=== PATIENT | male | born 1955 | race Caucasian/White ===

== ENCOUNTER 2016-09-15 01:06 | Emergency (ER) | payer OTHER ==
[2016-09-15] MEDS ORDERED: IPRATROPIUM/ALBUTEROL 3 ML NEB INH STA (02:41)
[2016-09-15] MEDS ORDERED: IPRATROPIUM/ALBUTEROL 3 ML NEB INH ONE (02:48)
[2016-09-15] MEDS ORDERED: predniSONE 20 MG TABLET PO STA (04:06)
[2016-09-15] MEDS ORDERED: AZITHROMYCIN 250 MG TABLET PO STA (04:07)
[2016-09-15] MEDS ORDERED: AZITHROMYCIN 250 MG TABLET PO ONE ×2 (04:10→04:15)
[2016-09-15] MEDS ORDERED: predniSONE 20 MG TABLET ONE (04:12)
== END 2016-09-15 04:19 | disposition home or self-care (01) ==
DX: J44.9 Chronic obstructive pulmonary disease, unspecified (principal); F17.200 Nicotine dependence, unspecified, uncomplicated
CPT/HCPCS: 36415; 71020; 80048; 83880; 85025; 87275; 87276; 94640; 99283; 99284; A9270; J7512; J7620

== ENCOUNTER 2017-12-23 14:05 | Emergency (ER) | payer OTHER ==
--- NOTE | 2017-12-23 14:51 | ED Physician Documentation ---
PD HPI CHEST PAIN - Stated complaint Stated Complaint: CHEST PX - Chief complaint Chief Complaint: Cardiac - History obtained from History obtained from: Patient - History of Present Illness Timing - onset: Yesterday Timing - onset during: Light activity Timing - details: Gradual onset, Still present (has cough and congestion and started having pain left chest with cough/breathing last night, improved into today but still hurting.) Quality: Sharp, Stabbing, Pain Location: Left chest Radiation: Back Worsened by: Inspiration, Movement. No: Exertion Associated symptoms: Shortness of air, Cough. No: Diaphoresis, Nausea, Vomiting , Feeling faint / dizzy, Palpitations Similar symptoms before: Diagnosis (COPD and pneumonia) Recently seen: Not recently seen Review of Systems Ten Systems: 10 systems reviewed and negative Constitutional: reports: Chills, Myalgias. denies: Fever Nose: reports: Congestion. denies: Rhinorrhea / runny nose Throat: denies: Sore throat Cardiac: reports: Chest pain / pressure. denies: Palpitations, Pedal edema, Calf pain Respiratory: reports: Dyspnea, Cough, Wheezing GI: denies: Nausea, Vomiting, Diarrhea Skin: denies: Rash PD PAST MEDICAL HISTORY - Past Medical History Respiratory: COPD, Emphysema Psych: Bipolar disorder, Post traumatic stress disorder - Past Surgical History Past Surgical History: Yes - Present Medications Home Medications: Ambulatory Orders Medication Instructions Recorded Confirmed Albuterol [Ventolin Hfa] 2 puffs INH Q4H PRN 11/22/13 09/15/16 Cetirizine HCl 1 mg PO DAILY 11/22/13 09/15/16 Valproic Acid [Stavzor] 125 mg PO DAILY 11/22/13 09/15/16 Ipratropium/Albuterol Sulfate 4 gm IH .FREQ 09/15/16 09/15/16 [Combivent Respimat Inhal [place]] predniSONE [Prednisone] 40 mg PO DAILY 3 Days tablet 09/15/16 Albuterol Sulf [Ventolin Hfa 1 - 2 puffs INH Q4HR PRN #1 inhaler 12/23/17 Inhaler] Benzonatate [Tessalon] 100 mg PO TID PRN #25 capsule 12/23/17 Dexamethasone [Decadron] 4 mg PO DAILY #5 tablet 12/23/17 Doxycycline Monohydrate 100 mg PO BID #14 tablet 12/23/17 HYDROcod/ACETAM 5/325 [[place] 5/325] 1 tab PO Q6H PRN #15 tablet 12/23/17 - Allergies Allergies/Adverse Reactions: Allergies Allergy/AdvReac Type Severity Reaction Status Date / Time No Known Drug Allergies Allergy Verified 09/15/16 01:11 - Social History Does the pt smoke?: Yes Smoking Status: Current every day smoker Does the pt drink ETOH?: No Does the pt have substance abuse?: No - Immunizations Immunizations are current?: Yes - POLST Patient has POLST: No PD ED PE NORMAL - Vitals Vital signs reviewed: Yes - General General: Alert and oriented X 3, No acute distress, Well developed/nourished - HEENT HEENT: Ears normal, Pharynx benign - Neck Neck: Supple, no meningeal sign, No adenopathy - Cardiac Cardiac: RRR, No murmur - Respiratory Respiratory: Other (diffuse exp wheezing. no fine crackles. ). No: Clear bilaterally - Abdomen Abdomen: Soft, Non tender - Derm Derm: Normal color, Warm and dry - Extremities Extremities: No deformity, No tenderness to palpate, No edema, No calf tenderness / cord Results - Vitals Vitals: Vital Signs - 24 hr 12/23/17 12/23/17 12/23/17 14:10 14:30 16:22 Temperature 36.8 C Heart Rate 98 83 Respiratory 18 16 Rate Blood Pressure 113/68 Blood Pressure 123/68 [Left] Blood Pressure 133/62 H [Right] O2 Saturation 95 12/23/17 12/23/17 12/23/17 16:32 17:14 17:35 Temperature Heart Rate 88 74 82 Respiratory 23 18 19 Rate Blood Pressure 137/62 H 114/57 L 120/66 Blood Pressure [Left] Blood Pressure [Right] O2 Saturation 100 82 L 95 12/23/17 18:05 Temperature Heart Rate 94 Respiratory 22 Rate Blood Pressure 122/60 Blood Pressure [Left] Blood Pressure [Right] O2 Saturation 96 Oxygen O2 Source Room air Oxygen Flow Rate 2 - EKG (time done) 14:11 Rate: Rate (enter#) (87) Rhythm: NSR [place]: Normal Intervals: Normal [place] QRS: Normal Ischemia: Normal ST segments. No: ST elevation c/w ischemia, ST depression Computer interpretation: Disagree with computer - Rads (name of study) chest Radiology: Prelim report reviewed, EMP read contemporaneously (hyperinflated without infiltrate) PD MEDICAL DECISION MAKING - ED course Complexity details: reviewed results (had brief sats below 87% but not consistent. To check with RT about qulification for home oxygen, but not likely. ), re-evaluated patient (improved with duoneb/neb. has COPD with exac and cough. Will treat with steroids and also presumptive abx. ), considered differential, d/w patient Departure - Departure Disposition: 01 Home, Self Care Clinical Impression: Bronchitis, Acute exacerbation of chronic obstructive pulmonary disease (COPD) , Pleuritic chest pain Condition: Stable Record reviewed to determine appropriate education?: Yes Instructions: COPD Dc, ED Chest Pain Pleurisy Prescriptions: Albuterol Sulf [Ventolin Hfa Inhaler] 1 - 2 puffs INH Q4HR PRN #1 inhaler PRN Reason: Shortness Of Air/Wheezing Benzonatate [Tessalon] 100 mg PO TID PRN #25 capsule PRN Reason: Cough Dexamethasone [Decadron] 4 mg PO DAILY #5 tablet Doxycycline Monohydrate 100 mg PO BID #14 tablet HYDROcod/ACETAM 5/325 [[place] 5/325] 1 tab PO Q6H PRN #15 tablet PRN Reason: Pain Comments: Drink lots of fluids. Use your albuterol inhaler 2-4 puffs 4 times a day and extra doses as needed for wheezing and cough. Decadron steroid daily for 5 more days. Doxycycline twice daily antibiotic for a week for concern of possible infection associated with the flareup of your COPD and cough. Use Tessalon if needed for cough. Tylenol or hydrocodone if needed for pains. Recheck if not improving over the next few days and return if worsening. Discharge Date/Time: 12/23/17 18:05
[2017-12-23] MEDS ORDERED: DEXAMETHASONE 10 MG/ML VIAL IVP STA (16:07)
[2017-12-23] MEDS ORDERED: MORPHINE 10 MG/ML VIAL IVP STA (16:07)
[2017-12-23] MEDS ORDERED: IPRATROPIUM/ALBUTEROL 3 ML NEB INH STA (16:07)
[2017-12-23] MEDS ORDERED: DOXYCYCLINE 100 MG TABLET PO STA (16:07)
[2017-12-23] MEDS ORDERED: KETOROLAC 60 MG/2 ML VIAL IVP STA (16:08)
--- NOTE | 2017-12-23 16:25 | XRAY Report ---
EXAM: CHEST RADIOGRAPHY EXAM DATE: 12/23/2017 03:43 PM. CLINICAL HISTORY: Chest pain COMPARISON: 09/15/2016. TECHNIQUE: 2 views. FINDINGS: Lungs/Pleura: No focal opacities evident. No pleural effusion. No pneumothorax. Normal volumes. Mediastinum: Heart and mediastinal contours are unremarkable. Other: None. IMPRESSION: No acute intrathoracic plain film abnormality. [facility] Referring Provider Line: [phone] SITE ID: [id number]
[2017-12-23 18:19] VITALS: BP 122/60
== END 2017-12-23 18:05 | disposition home or self-care (01) ==
LOC: ED 14:05
DX: J43.9 Emphysema, unspecified (principal); F17.200 Nicotine dependence, unspecified, uncomplicated
CPT/HCPCS: 71046; 93005; 94640; 96374; 96375; 99284; A9270; 80053; 83690; 84484; 85025; 96360

== ENCOUNTER 2018-01-15 17:21 | Emergency (ER) | payer OTHER ==
[2018-01-15 17:29] VITALS: BP 120/76
[2018-01-15] MEDS ORDERED: SULFAMETH/TRIMETH DS 800/160 MG TABLET PO STA (17:41)
[2018-01-15] MEDS ORDERED: cephALEXin 250 MG CAPSULE PO STA (17:41)
--- NOTE | 2018-01-15 17:44 | ED Physician Documentation ---
History of Present Illness - Stated complaint Stated Complaint: ARM/HAND/SINUS INFECTION - Chief complaint Chief Complaint: General - History obtained from History obtained from: Patient - History of Present Illness Timing: How many days ago (several) Pain level max: 0 Pain level now: 0 Improved by: nothing Worsened by: nothing - Additonal information Additional information: Patient is a 62-year-old gentleman that presents to the emergency department complaining of redness and swelling to the right arm. This [place] He has been applying Neosporin, but the redness is starting to spread up his arm. No fevers. He also had a recent upper respiratory infection, the coughing has improved but is still having nasal congestion and blood when he blows his nose. No fevers. No vomiting. No chest pain. Tetanus is up-to-date. Review of Systems Constitutional: denies: Fever, Chills Nose: reports: Rhinorrhea / runny nose, Congestion Throat: denies: Sore throat Cardiac: denies: Chest pain / pressure Respiratory: denies: Cough GI: denies: Nausea, Vomiting, Diarrhea Skin: denies: Rash Musculoskeletal: denies: Neck pain, Back pain Neurologic: denies: Headache PD PAST MEDICAL HISTORY - Past Medical History Past Medical History: Yes Respiratory: COPD, Emphysema Psych: Bipolar disorder, Post traumatic stress disorder - Past Surgical History Past Surgical History: Yes - Present Medications Home Medications: Ambulatory Orders Medication Instructions Recorded Confirmed Albuterol [Ventolin Hfa] 2 puffs INH Q4H PRN 11/22/13 09/15/16 Cetirizine HCl 1 mg PO DAILY 11/22/13 09/15/16 Valproic Acid [Stavzor] 125 mg PO DAILY 11/22/13 09/15/16 Ipratropium/Albuterol Sulfate 4 gm IH .FREQ 09/15/16 09/15/16 [Combivent Respimat Inhal [place]] predniSONE [Prednisone] 40 mg PO DAILY 3 Days tablet 09/15/16 Albuterol Sulf [Ventolin Hfa 1 - 2 puffs INH Q4HR PRN #1 inhaler 12/23/17 Inhaler] Benzonatate [Tessalon] 100 mg PO TID PRN #25 capsule 12/23/17 Dexamethasone [Decadron] 4 mg PO DAILY #5 tablet 12/23/17 Doxycycline Monohydrate 100 mg PO BID #14 tablet 12/23/17 HYDROcod/ACETAM 5/325 [[place] 5/325] 1 tab PO Q6H PRN #15 tablet 12/23/17 Cephalexin [Keflex] 500 mg PO Q6H #28 capsule 01/15/18 Sulfamethox/Trimeth 800/160 1 each PO BID #14 tablet 01/15/18 [Bactrim Ds 800/160] - Allergies Allergies/Adverse Reactions: Allergies Allergy/AdvReac Type Severity Reaction Status Date / Time No Known Drug Allergies Allergy Verified 01/15/18 17:29 - Social History Does the pt smoke?: Yes Smoking Status: Current every day smoker Does the pt drink ETOH?: No Does the pt have substance abuse?: No - Immunizations Immunizations are current?: Yes - POLST Patient has POLST: No PD ED PE NORMAL - Vitals Vital signs reviewed: Yes - General General: Alert and oriented X 3 - HEENT HEENT: PERRL, Ears normal, Moist mucous membranes, Pharynx benign, Dentition benign - Neck Neck: Supple, no meningeal sign - Cardiac Cardiac: RRR, Strong equal pulses - Respiratory Respiratory: No respiratory distress, Clear bilaterally - Abdomen Abdomen: Soft, Non tender, Non distended - Derm Derm: Warm and dry - Extremities Extremities: Other (R forearm - 3x3cm erythematous area to the arm. no drainage. no fluctuance. NVI. mild streaking. ) - Neuro Neuro: Alert and oriented X 3 - Psych Psych: Normal mood, Normal affect Results - Vitals Vitals: Vital Signs - 24 hr 01/15/18 17:26 Temperature 36.7 C Heart Rate 110 H Respiratory 18 Rate Blood Pressure 120/76 O2 Saturation 96 Oxygen O2 Source Room air PD MEDICAL DECISION MAKING - ED course Complexity details: considered differential, d/w patient, d/w family ED course: Patient is a 62-year-old male with a right arm cellulitis. Will place on antibiotics for this. He is well-appearing, nontoxic. Afebrile. Tetanus is up -to-date. Also may have a sinus infection, Bactrim should cover this. Patient counseled regarding signs and symptoms for which I believe and urgent re- evaluation would be necessary. Patient with good understanding of and agreement to plan and is comfortable going home at this time This document was made in part using voice recognition software. While efforts are made to proofread this document, sound alike and grammatical errors may occur. No drainable abscess at this time - Sepsis Event Vital Signs: Vital Signs - 24 hr 01/15/18 17:26 Temperature 36.7 C Heart Rate 110 H Respiratory 18 Rate Blood Pressure 120/76 O2 Saturation 96 Oxygen O2 Source Room air Departure - Departure Disposition: Home, Self Care Clinical Impression: Cellulitis Qualifiers: Site of cellulitis: extremity Site of cellulitis of extremity: upper extremity Laterality: right Qualified Code(s): L03.113 - Cellulitis of right upper limb Condition: Good Instructions: ED Infec Skin Cellulitis Follow-Up: your,doctor in 3 days for wound check [Other] Prescriptions: Cephalexin [Keflex] 500 mg PO Q6H #28 capsule Sulfamethox/Trimeth 800/160 [Bactrim Ds 800/160] 1 each PO BID #14 tablet Comments: Return if you worsen. This should improve over the next 24-48 hours. Take all antibiotics until gone.
== END 2018-01-15 17:55 | disposition home or self-care (01) ==
LOC: ED 17:21
DX: L03.113 Cellulitis of right upper limb (principal); J44.9 Chronic obstructive pulmonary disease, unspecified; F17.200 Nicotine dependence, unspecified, uncomplicated; F31.9 Bipolar disorder, unspecified; R09.81 Nasal congestion
CPT/HCPCS: 99283; A9270

== ENCOUNTER 2019-03-12 00:39 | Outpatient (CLI) | payer OTHER | END 2019-03-12 00:40 | disposition critical access hospital (66) | LOC: EMS 00:39 | PROVIDERS: ATTEND Surgery | DX: R06.02 Shortness of breath (principal); R05 Cough | CPT/HCPCS: A0425; A0427 ==

== ENCOUNTER 2019-03-12 01:16 | Emergency (ER) | payer OTHER ==
--- NOTE | 2019-03-12 01:25 | ED Physician Documentation ---
PD HPI DYSPNEA - Stated complaint Stated Complaint: SOA - History obtained from History obtained from: Patient, EMS - History of Present Illness Timing - onset: How many hours ago Timing - onset during: Rest Timing - duration: Hours (3-4) Timing - details: Gradual onset Inciting event(s): Out of meds. No: Allergic rxn/anaphylaxis Improved by: O2, Inhaler/neb Worsened by: Laying flat Associated symptoms: Cough, Wheezing. No: Fever, Hemoptysis, Chest pain / discomfort, Palpitations, Diaphoresis, Bilateral edema, Unilateral edema Similar symptoms before: Diagnosis (COPD) Recently seen: Not recently seen - Additional information Additional information: This is a 63-year-old man with a history of COPD called the ambulance tonight because he was having difficulty breathing and has been out of his rescue inhaler for about 2 months. He said tonight he thought he was going to he was having so much trouble breathing the ambulance gave him albuterol and Atrovent and he feels "100% better". Tonight he started coughing about 4 hours before he called the ambulance and he just could not stop. He is bringing up some clear phlegm. He also developed a constant clear rhinorrhea. Denies any fevers. Reports a history of COPD and says that he is taken prednisone that was prescribed for other people in the past but is never had a prescription for himself. He denies chest pain, nausea or vomiting. He has had no peripheral edema no history of DVT. Denies any urinary symptoms. No fever. Patient lives at home with his family and receives his medical care at the [facility] in [place]. Review of Systems Constitutional: denies: Fever Eyes: denies: Decreased vision Ears: denies: Ear pain Nose: reports: Rhinorrhea / runny nose Throat: denies: Sore throat Cardiac: denies: Chest pain / pressure, Pedal edema Respiratory: reports: Dyspnea, Cough, Wheezing GI: denies: Nausea, Vomiting : denies: Dysuria, Frequency Skin: denies: Rash Musculoskeletal: denies: Extremity swelling Neurologic: denies: Numbness, LOC Endocrine: reports: Other (He is not diabetic) PD PAST MEDICAL HISTORY - Past Medical History Respiratory: COPD, Emphysema Psych: Bipolar disorder, Post traumatic stress disorder - Past Surgical History Past Surgical History: Yes - Present Medications Home Medications: Ambulatory Orders Medication Instructions Recorded Confirmed Albuterol [Ventolin Hfa] 2 puffs INH Q4H PRN 11/22/13 09/15/16 Cetirizine HCl 1 mg PO DAILY 11/22/13 09/15/16 Valproic Acid [Stavzor] 125 mg PO DAILY 11/22/13 09/15/16 Ipratropium/Albuterol Sulfate 4 gm IH .FREQ 09/15/16 09/15/16 [Combivent Respimat Inhal [place]] predniSONE [Prednisone] 40 mg PO DAILY 3 Days tablet 09/15/16 Albuterol Sulf [Ventolin Hfa 1 - 2 puffs INH Q4HR PRN #1 inhaler 12/23/17 Inhaler] Benzonatate [Tessalon] 100 mg PO TID PRN #25 capsule 12/23/17 Doxycycline Monohydrate 100 mg PO BID #14 tablet 12/23/17 HYDROcod/ACETAM 5/325 [[place] 5/325] 1 tab PO Q6H PRN #15 tablet 12/23/17 dexAMETHasone [Decadron] 4 mg PO DAILY #5 tablet 12/23/17 Cephalexin [Keflex] 500 mg PO Q6H #28 capsule 01/15/18 Sulfamethox/Trimeth 800/160 1 each PO BID #14 tablet 01/15/18 [Bactrim Ds 800/160] Albuterol 2.5 mg INH Q4H PRN #30 neb 03/12/19 predniSONE [Prednisone] 60 mg PO DAILY #15 tablet 03/12/19 - Allergies Allergies/Adverse Reactions: Allergies Allergy/AdvReac Type Severity Reaction Status Date / Time No Known Drug Allergies Allergy Verified 03/12/19 01:25 - Social History Does the pt smoke?: Yes Smoking Status: Current every day smoker Does the pt drink ETOH?: No Does the pt have substance abuse?: No - Immunizations Immunizations are current?: Yes - POLST Patient has POLST: No PD ED PE NORMAL - Vitals Vital signs reviewed: Yes - General General: Alert and oriented X 3, No acute distress, Well developed/nourished, Other (Thin 63 yr old man appears still slightly dyspneic) - HEENT HEENT: Atraumatic, PERRL, EOMI, Moist mucous membranes, Pharynx benign - Neck Neck: Supple, no meningeal sign, Thyroid normal - Cardiac Cardiac: RRR, No murmur - Respiratory Respiratory: No respiratory distress, Other (Lungs are tight with just end insp iratory wheezing heard at the left lung norris.) - Abdomen Abdomen: Normal bowel sounds, Soft - Derm Derm: Normal color, Warm and dry, No rash - Extremities Extremities: No edema - Neuro Neuro: Alert and oriented X 3, patrol man 2-12 intact, No motor deficit, Normal speech - Psych Psych: Normal mood, Normal affect Results - Vitals Vitals: Vital Signs - 24 hr 03/12/19 03/12/19 03/12/19 01:19 01:36 03:00 Temperature 36.4 C L Heart Rate 74 73 76 Respiratory 28 H 9 L 21 Rate Blood Pressure 145/70 H 138/66 H O2 Saturation 98 94 03/12/19 03:30 Temperature Heart Rate 79 Respiratory 17 Rate Blood Pressure 138/73 H O2 Saturation 94 Oxygen O2 Source Room air Oxygen Flow Rate 2 - Labs Labs: Laboratory Tests 03/12/19 03/12/19 01:33 01:33 WBC 10.3 RBC 4.38 L Hgb 13.7 L Hct 42.3 MCV 96.6 H MCH 31.3 H MCHC 32.4 RDW 14.5 Plt Count 258 MPV 8.9 Neut # (Auto) 5.7 Lymph # (Auto) 3.2 [place] # (Auto) 1.1 H Eos # (Auto) 0.2 Baso # (Auto) 0.1 Absolute Nucleated RBC 0.00 Nucleated RBC % 0.0 Sodium 140 Potassium 4.1 Chloride 103 Carbon Dioxide 28 Anion Gap 9.0 BUN 19 Creatinine 0.9 Estimated GFR (MDRD) 85 L Glucose 102 H Calcium 8.9 Magnesium 2.1 PD MEDICAL DECISION MAKING - ED course Complexity details: reviewed results, d/w patient ED course: 0218: Chest x-ray shows hyperinflation but no infiltrate. CBC BMP and magnesium are normal. The patient received an albuterol here and said that he was feeling better he was actually sleeping when I went in the room his sats were 96% on 2 L. Turned his oxygen off and I have ordered Solu-Medrol. His lung sounds are still diminished but I do not hear the wheezing any longer. 0346: Patient has sleeping and O2 saturations are 9495% on room air.When aroused he states that he feels good and ready for discharge. We will place him on prednisone for 5 days and make sure he has albuterol inhaler Departure - Departure Disposition: 01 Home, Self Care Clinical Impression: Moderate COPD (chronic obstructive pulmonary disease) Condition: Good Instructions: ED COPD Flare Follow-Up: doctor,your [Other] [facility] [Provider Group] Prescriptions: Albuterol 2.5 mg INH Q4H PRN #30 neb PRN Reason: Wheezing predniSONE [Prednisone] 60 mg PO DAILY #15 tablet Comments: Stop smoking! Take the prednisone 3 tablets daily for the next 5 days. Use the albuterol inhaler every 4 hours as needed. Follow-up with a primary care provider for further refills on her medications and reevaluation if your symptoms are not improving. Return to the emergency department if you have increasing shortness of breath, feel dizzy or pass out, develop chest pain or other problems arise.
[2019-03-12] MEDS ORDERED: ALBUTEROL NEB 2.5 MG/3 ML INH STA (01:26)
[2019-03-12 01:38] LABS: BASOPHILS # (AUTO) 0.1 10^3/uL (0.0-0.1); BASOPHILS % (AUTO) 0.6 %; EOSINOPHILS # (AUTO) 0.2 10^3/uL (0.0-0.7); EOSINOPHILS % (AUTO) 2.1 %; HGB - HEMOGLOBIN 13.7 g/dL (14.0-18.0); LYMPHOCYTES # (AUTO) 3.2 10^3/uL (1.5-3.5); LYMPHOCYTES % (AUTO) 30.8 %; MEAN CORPUSCULAR HEMOGLOBIN 31.3 pg (27.0-31.0); MEAN CORPUSCULAR HGB CONC 32.4 g/dL (32.0-36.0); MEAN CORPUSCULAR VOLUME 96.6 fL (80.0-94.0); MEAN PLATELET VOLUME 8.9 fL (7.4-11.4); MONOCYTES # (AUTO) 1.1 10^3/uL (0.0-1.0); MONOCYTES % (AUTO) 10.3 %; NEUTROPHILS # (AUTO) 5.7 10^3/uL (1.5-6.6); NEUTROPHILS % (AUTO) 55.7 %; PLT - PLATELET COUNT 258 10^3/uL (130-450); RED BLOOD COUNT 4.38 10^6/uL (4.70-6.10); RED CELL DISTRIBUTION WIDTH 14.5 % (12.0-15.0); WHITE BLOOD COUNT 10.3 x10^3/uL (4.8-10.8)
[2019-03-12 01:47] LABS: CALCIUM 8.9 mg/dL (8.5-10.3); CREATININE 0.9 mg/dL (0.6-1.2); MAGNESIUM 2.1 mg/dL (1.7-2.8)
--- NOTE | 2019-03-12 01:47 | XRAY Report ---
Reason: chest pain Procedure Date: 03/12/2019 Accession Number: [id number] / [id number] Procedure: XR - Chest 1 View X-Ray CPT Code: 44326 FULL RESULT: EXAM: CHEST RADIOGRAPHY EXAM DATE: 03/12/2019 01:25 AM. CLINICAL HISTORY: Chest pain. COMPARISON: CHEST 2 VIEW 12/23/2017 3:29 PM. TECHNIQUE: 1 view. FINDINGS: Lungs/Pleura: Stable hyperinflation. No focal infiltrate, effusion, or pneumothorax. Mediastinum: Within exam limitations, the cardiomediastinal contour is normal. Other: None. IMPRESSION: Stable hyperinflation. No evidence of acute cardiopulmonary disease. [facility]
[2019-03-12] MEDS ORDERED: methylPREDNISolone SUCCINATE 125 MG/2 ML VIAL IVP STA (02:16)
[2019-03-12 04:21] VITALS: BP 133/73
== END 2019-03-12 04:38 | disposition home or self-care (01) ==
LOC: EDUNIT# → ED 01:16
DX: J44.9 Chronic obstructive pulmonary disease, unspecified (principal); F17.200 Nicotine dependence, unspecified, uncomplicated
CPT/HCPCS: 36415; 71045; 80048; 83735; 85025; 94640; 96374; 99284

== ENCOUNTER 2019-04-02 23:12 | Emergency (ER) | payer OTHER ==
[2019-04-02 23:19] VITALS: BP 136/73
--- NOTE | 2019-04-02 23:45 | ED Physician Documentation ---
PD HPI MALE - Stated complaint Stated Complaint: MALE - Chief complaint Chief Complaint: Abd Pain - History obtained from History obtained from: Patient - History of Present Illness Timing - onset: How many days ago (2-3) Timing - duration: Days Timing - details: Gradual onset Associated symptoms: Dysuria, Urinary frequency Similar symptoms before: Has not had sx before Recently seen: Not recently seen Review of Systems Constitutional: denies: Fever, Chills, Sweats GI: denies: Abdominal Pain : reports: Dysuria, Frequency Musculoskeletal: denies: Back pain PD PAST MEDICAL HISTORY - Past Medical History Past Medical History: No Cardiovascular: None Respiratory: COPD, Emphysema Neuro: None Endocrine/Autoimmune: None GI: None : None HEENT: None Psych: Bipolar disorder, Post traumatic stress disorder Musculoskeletal: None Derm: None - Past Surgical History Past Surgical History: Yes - Present Medications Home Medications: Ambulatory Orders Medication Instructions Recorded Confirmed Albuterol [Ventolin Hfa] 2 puffs INH Q4H PRN 11/22/13 09/15/16 Cetirizine HCl 1 mg PO DAILY 11/22/13 09/15/16 Valproic Acid [Stavzor] 125 mg PO DAILY 11/22/13 09/15/16 Ipratropium/Albuterol Sulfate 4 gm IH .FREQ 09/15/16 09/15/16 [Combivent Respimat Inhal [place]] predniSONE [Prednisone] 40 mg PO DAILY 3 Days tablet 09/15/16 Albuterol Sulf [Ventolin Hfa 1 - 2 puffs INH Q4HR PRN #1 inhaler 12/23/17 Inhaler] Benzonatate [Tessalon] 100 mg PO TID PRN #25 capsule 12/23/17 Doxycycline Monohydrate 100 mg PO BID #14 tablet 12/23/17 HYDROcod/ACETAM 5/325 [[place] 5/325] 1 tab PO Q6H PRN #15 tablet 12/23/17 dexAMETHasone [Decadron] 4 mg PO DAILY #5 tablet 12/23/17 Cephalexin [Keflex] 500 mg PO Q6H #28 capsule 01/15/18 Sulfamethox/Trimeth 800/160 1 each PO BID #14 tablet 01/15/18 [Bactrim Ds 800/160] Albuterol 2.5 mg INH Q4H PRN #30 neb 03/12/19 predniSONE [Prednisone] 60 mg PO DAILY #15 tablet 03/12/19 Ciprofloxacin HCl [Cipro] 500 mg PO BID #13 tablet 04/03/19 Phenazopyridine HCl [Pyridium] 200 mg PO TID PRN #6 tablet 04/03/19 - Allergies Allergies/Adverse Reactions: Allergies Allergy/AdvReac Type Severity Reaction Status Date / Time No Known Drug Allergies Allergy Verified 04/02/19 23:20 - Social History Does the pt smoke?: Yes Smoking Status: Current every day smoker Does the pt drink ETOH?: Yes Does the pt have substance abuse?: No - Immunizations Immunizations are current?: Yes - POLST Patient has POLST: No PD ED PE NORMAL - Vitals Vital signs reviewed: Yes - General General: Alert and oriented X 3, No acute distress, Well developed/nourished - Abdomen Abdomen: Soft, Non tender - Back Back: No CVA TTP Results - Vitals Vitals: Vital Signs - 24 hr 04/02/19 23:17 Temperature 36.9 C Heart Rate 85 Respiratory 18 Rate Blood Pressure 136/73 H O2 Saturation 97 Oxygen O2 Source Room air - Labs Labs: Laboratory Tests 04/02/19 23:50 Urine Color YELLOW Urine Clarity CLEAR Urine pH 6.0 Ur Specific [place] 1.025 Urine Protein NEGATIVE Urine Glucose (UA) NEGATIVE Urine Ketones NEGATIVE Urine Occult Blood NEGATIVE Urine Nitrite NEGATIVE Urine Bilirubin NEGATIVE Urine Urobilinogen 0.2 (NORMAL) Ur Leukocyte Esterase SMALL H Urine RBC 0-5 Urine WBC 11-25 H Ur Squamous Epith Cells RARE Squamous Urine Bacteria Few Ur Microscopic Review INDICATED Urine Culture Comments INDICATED PD MEDICAL DECISION MAKING - ED course Complexity details: reviewed results, re-evaluated patient, considered differential, d/w patient Departure - Departure Disposition: 01 Home, Self Care Clinical Impression: Urinary tract infection Condition: Good Instructions: ED UTI Cystitis Male Prescriptions: Ciprofloxacin HCl [Cipro] 500 mg PO BID #13 tablet Phenazopyridine HCl [Pyridium] 200 mg PO TID PRN #6 tablet PRN Reason: dysuria Discharge Date/Time: 04/03/19 00:44
[2019-04-03] LABS: BILIRUBIN,URINE NEGATIVE (NEGATIVE); GLUCOSE, URINE (UA) NEGATIVE (NEGATIVE); KETONES,URINE (UA) NEGATIVE (NEGATIVE); LEUKOCYTE ESTERASE, URINE SMALL (NEGATIVE); NITRITE,URINE NEGATIVE (NEGATIVE); OCCULT BLOOD,URINE NEGATIVE (NEGATIVE); PROTEIN,URINE NEGATIVE (NEGATIVE); UROBILINOGEN,URINE 0.2 (NORMAL) E.U./dL (NORMAL)
[2019-04-03 00:09] LABS: CLARITY,URINE CLEAR (CLEAR)
[2019-04-03 00:22] LABS: BACTERIA,URINE Few /HPF (None Seen); RBC,URINE 0-5 /HPF (0-5); SQUAMOUS EPITHELIAL CELL,UR RARE Squamous (<= Few)
[2019-04-03] MEDS ORDERED: CIPROFLOXACIN 250 MG TABLET PO STA (00:28)
[2019-04-03] MEDS ORDERED: PHENAZOPYRIDINE 100 MG TABLET PO STA (00:31)
== END 2019-04-03 00:44 | disposition home or self-care (01) ==
LOC: ED 23:12
DX: N39.0 Urinary tract infection, site not specified (principal); F17.200 Nicotine dependence, unspecified, uncomplicated
CPT/HCPCS: 81001; 87086; 99283; A9270; 81003

== ENCOUNTER 2019-11-01 05:21 | Outpatient (CLI) | payer OTHER | END 2019-11-01 05:22 | disposition short-term general hospital (02) | LOC: EMS 05:21 | PROVIDERS: ATTEND Surgery | DX: R07.9 Chest pain, unspecified (principal) | CPT/HCPCS: A0425; A0429 ==

== ENCOUNTER 2022-09-02 03:07 | Outpatient (CLI) | payer OTHER | END 2022-09-02 03:08 | disposition critical access hospital (66) | LOC: EMS 03:07 | DX: R06.00 Dyspnea, unspecified (principal); R23.1 Pallor; R61 Generalized hyperhidrosis; R06.2 Wheezing | CPT/HCPCS: A0425; A0427 ==

== ENCOUNTER 2022-09-02 03:43 | Emergency (ER) | payer OTHER ==
--- NOTE | 2022-09-02 04:12 | ED Physician Documentation ---
PD HPI DYSPNEA - Stated complaint Stated Complaint: SOA - Chief complaint Chief Complaint: Resp - History obtained from History obtained from: Patient - History of Present Illness Timing - onset: How many days ago (3) Timing - details: Gradual onset Improved by: Rest Worsened by: Exertion, Coughing Associated symptoms: Cough, Wheezing. No: Fever, Chest pain / discomfort, Palpitations, Bilateral edema, Unilateral edema Similar symptoms before: Diagnosis (COPD) - Additional information Additional information: HPI from patient and EMS. BIBA for c/o dyspnea. Patient has COPD; EMS they arrived to find patient on 3 liters/min NC oxygen with pulse ox 86% , improved to 90-93% with duoneb followed by albuterol neb treatments. Also given 125mg IV solu-medrol by EMS. EMS says patient uses oxygen at home. On my HPI, patient denies using home oxygen; he says he used to have home oxygen but at some point his insurance stopped covering the cost and thus he no longer uses home oxygen. He says he has a nebulizer machine but ran out of neb treatments. He says he does have inhalers for his COPD exacerbations. He tells me he has had increasing dyspnea over his baseline for past 3 days as well as increasing cough which has become productive of discolored sputum over past 2-3 days. Patient was admitted to [facility] 01/01/22 for COPD exacerbation associated with fevers and pneumonia. Review of Systems Constitutional: denies: Fever, Chills, Sweats Cardiac: reports: Reviewed and negative Respiratory: reports: Dyspnea, Cough, Wheezing. denies: Hemoptysis GI: reports: Reviewed and negative Neurologic: denies: Generalized weakness, Focal weakness, Numbness PD PAST MEDICAL HISTORY - Past Medical History Cardiovascular: None Respiratory: COPD, Emphysema Neuro: None Endocrine/Autoimmune: None GI: None : None HEENT: None Psych: Bipolar disorder, Post traumatic stress disorder Musculoskeletal: None Derm: None - Past Surgical History Past Surgical History: Yes - Present Medications Home Medications: Ambulatory Orders Medication Instructions Recorded Confirmed Cetirizine HCl 1 mg PO DAILY 11/22/13 09/02/22 Valproic Acid [Stavzor] 125 mg PO DAILY 11/22/13 09/02/22 Ipratropium/Albuterol Sulfate 1 puffs IH QID 09/15/16 09/02/22 [Combivent Respimat 20-100 Mcg] Albuterol Sulf [Ventolin Hfa 1 - 2 puffs INH Q4HR PRN #1 inhaler 12/23/17 09/02/22 Inhaler] Albuterol 2.5 mg INH Q4H PRN #30 neb 03/12/19 09/02/22 Terazosin [Hytrin] 2 mg PO DAILY 01/02/22 09/02/22 predniSONE [Deltasone] 10 mg PO DAILY 8 Days #8 tablet 01/04/22 09/02/22 Albuterol 2.5 mg INH Q4H PRN #30 ml 09/02/22 Azithromycin [Zithromax] 250 mg PO DAILY #4 tablet 09/02/22 predniSONE [Deltasone] 40 mg PO DAILY 5 Days #10 tablet 09/02/22 - Allergies Allergies/Adverse Reactions: Allergies Allergy/AdvReac Type Severity Reaction Status Date / Time No Known Drug Allergies Allergy Verified 09/02/22 03:52 - Social History Does the pt smoke?: Yes Smoking Status: Former smoker Does the pt drink ETOH?: Yes Does the pt have substance abuse?: No - Immunizations Immunizations are current?: Yes - POLST Patient has POLST: No POLST Status: Full Code PD ED PE NORMAL - Vitals Vital signs reviewed: Yes - General General: Alert and oriented X 3, No acute distress, Well developed/nourished - Neck Neck: Supple, no meningeal sign - Cardiac Cardiac: RRR, No murmur - Respiratory Respiratory: No respiratory distress - Derm Derm: Normal color, Warm and dry - Extremities Extremities: No edema PD ED PE EXPANDED - Respiratory Respiratory: Wheezing (course bilateral wheezing in all lung norris), Decreased breath sounds Results - Vitals Vitals: Oxygen O2 Source Room air Oxygen Flow Rate 3 - EKG (time done) No standard instances Rate: Rate (enter#) (96) Rhythm: NSR, LAE, KE [place]: LAD Intervals: Normal [place] QRS: Normal Ischemia: Normal ST segments - Labs Labs: Laboratory Tests 09/02/22 09/02/22 09/02/22 03:40 03:48 03:48 WBC 12.6 H RBC 4.12 L Hgb 12.3 L Hct 38.4 L MCV 93.2 MCH 29.9 MCHC 32.0 RDW 15.5 H Plt Count 266 MPV 10.1 Neut # (Auto) 8.7 H Lymph # (Auto) 2.9 [place] # (Auto) 1.0 Eos # (Auto) 0.0 Baso # (Auto) 0.1 Absolute Nucleated RBC 0.00 Nucleated RBC % 0.0 Sodium 137 Potassium 4.0 Chloride 98 L Carbon Dioxide 28 Anion Gap 11.0 BUN 18 Creatinine 1.2 Estimated GFR (MDRD) 60 L Glucose 153 H Calcium 9.0 Total Bilirubin 0.6 AST 14 ALT 11 Alkaline Phosphatase 73 Troponin I High Sens B-Natriuretic Peptide Total Protein 7.0 Albumin 3.0 L Globulin 4.0 Albumin/Globulin Ratio 0.8 L Lipase 25 Nasal Adenovirus (PCR) NOT DETECTED Nasal B. parapertussis DNA (PCR) NOT DETECTED Nasal Coronavir 229E PCR NOT DETECTED Nasal Coronavir HKU1 PCR NOT DETECTED Nasal Coronavir NL63 PCR NOT DETECTED Nasal Coronavir OC43 PCR NOT DETECTED Nasal Enterovir/Rhinovir PCR DETECTED A Nasal Influenza B PCR NOT DETECTED Nasal Influenza A PCR NOT DETECTED Nasal Parainfluen 1 PCR NOT DETECTED Nasal Parainfluen 2 PCR NOT DETECTED Nasal Parainfluen 3 PCR NOT DETECTED Nasal Parainfluen 4 PCR NOT DETECTED Nasal RSV (PCR) NOT DETECTED Nasal B.pertussis DNA PCR NOT DETECTED Nasal C.pneumoniae (PCR) NOT DETECTED Pako Human Metapneumo PCR NOT DETECTED Nasal M.pneumoniae (PCR) NOT DETECTED Nasal SARS-CoV-2 (PCR) NOT DETECTED 09/02/22 09/02/22 03:48 03:48 WBC RBC Hgb Hct MCV MCH MCHC RDW Plt Count MPV Neut # (Auto) Lymph # (Auto) [place] # (Auto) Eos # (Auto) Baso # (Auto) Absolute Nucleated RBC Nucleated RBC % Sodium Potassium Chloride Carbon Dioxide Anion Gap BUN Creatinine Estimated GFR (MDRD) Glucose Calcium Total Bilirubin AST ALT Alkaline Phosphatase Troponin I High Sens 6.1 B-Natriuretic Peptide 61 Total Protein Albumin Globulin Albumin/Globulin Ratio Lipase Nasal Adenovirus (PCR) Nasal B. parapertussis DNA (PCR) Nasal Coronavir 229E PCR Nasal Coronavir HKU1 PCR Nasal Coronavir NL63 PCR Nasal Coronavir OC43 PCR Nasal Enterovir/Rhinovir PCR Nasal Influenza B PCR Nasal Influenza A PCR Nasal Parainfluen 1 PCR Nasal Parainfluen 2 PCR Nasal Parainfluen 3 PCR Nasal Parainfluen 4 PCR Nasal RSV (PCR) Nasal B.pertussis DNA PCR Nasal C.pneumoniae (PCR) Pako Human Metapneumo PCR Nasal M.pneumoniae (PCR) Nasal SARS-CoV-2 (PCR) - Rads (name of study) chest xray Radiology: Prelim report reviewed, EMP read indepedently, See rad report PD Medical Decision Making - ED course Complexity details: reviewed old records (reviewed discharge summary from 01/01/22 [facility] inpatient stay), reviewed results, re-evaluated patient, considered differential, d/w patient ED course: HPI from patient as well as EMS. I also spoke with patient's late in ED stay. Tests ordered and reviewed by me: CBC, ER abdominal panel, respiratory PCR panel, BNP, hs-cTn, EKG, CXR. Normal BNP and troponin. Mild leukocytosis. Respiratory PCR panel positive for entero/rhinovirus On arrival, patient has pulse ox 89% on 3 liters/min NC, and oxygen increased to as high as 10 L/min to get to maintain 90-92% pulse ox. He is given albuterol neb in ED. CXR shows changes c/w severe COPD; faint bilateral opacities, possibly atelectasis , scarring, or infiltrates. Due to severity of COPD and possible early pneumonia on CXR, he is given rocephin 1 gram IV as well as 500mg IV azithromycin. He had significant improvement during subsequent observation , and supplementary oxygen was titrated down to 2 l/min NC with pulse ox 95-97%. On reassessment, I again asked him about home oxygen, noting that the d/c summary from 01/01/22 indicates he was set up with home oxygen. He again says this was when he had oxygen for a few months before being told he would no longer be covered for home oxygen use (from coverage standpoint). He was trialed off of oxygen and pulse ox dropped to 85% , returning to 94-95% with resumption of 2 l/min NC oxygen. I then spoke to patient's by phone. She says patient does have a home oxygenator that can provide 2 liters/min oxygen, but that patient mostly does not use it even when he becomes short of breath. Subsequently, I had environmental health technologist walk patient up and down the ED hallway with 2 l/min NC oxygen and patient was able to ambulate without assistance or difficulty, did not become dyspneic (I witnessed the ambulation/testing), and pulse ox maintained 94-95% throughout. There is no longer an indication / need for admission to [facility] and thus at end of my shift he is pending d/c home. I provided rx for azithromycin as well as albuterol arnel brandon. Departure - Departure Disposition: Home, Self Care Clinical Impression: Acute exacerbation of chronic obstructive pulmonary disease (COPD) Condition: Good Instructions: ED COPD Flare Prescriptions: Albuterol 2.5 mg INH Q4H PRN #30 ml PRN Reason: Wheezing predniSONE [Deltasone] 40 mg PO DAILY 5 Days #10 tablet Azithromycin [Zithromax] 250 mg PO DAILY #4 tablet Comments: There were no concerning findings on the blood test performed tonight. There is some very mild hazy abnormalities on the chest x-ray that could represent pneumonia. For this, antibiotics (one-time dose of ceftriaxone intravenously followed by a dose of azithromycin IV). You are also given a steroid through the IV (Solu-Medrol). At the end of your ER stay just prior to discharge, you able to walk up and down the hallway with only 2 L of oxygen through the nasal cannula. You have indicated that you do have an oxygenator at home capable of delivering 2 L of oxygen, and thus it is very important that you use the oxygen. Prescriptions for a steroid (prednisone) and 4 more days of the azithromycin (antibiotic) are being provided to you. The steroid is to be taken once a day for the next 5 days. You have indicated to me that you have a nebulizer at home but have run out of the nebulized treatments, and thus I have also provided a prescription for albuterol in the form that can be used with the nebulizer. Please follow-up with your primary care provider within 1 week for reevaluation. Please return to the emergency department if worse in any way, or if you develop fever, shortness of breath that does not respond to the oxygen and nebulized treatments. Discharge Date/Time: 09/02/22 15:16
[2022-09-02 04:17] LABS: BASOPHILS # (AUTO) 0.1 10^3/uL (0.0-0.1); BASOPHILS % (AUTO) 0.5 %; EOSINOPHILS % (AUTO) 0.2 %; HCT - HEMATOCRIT 38.4 % (42.0-52.0); HGB - HEMOGLOBIN 12.3 g/dL (14.0-18.0); LYMPHOCYTES # (AUTO) 2.9 10^3/uL (1.5-3.5); LYMPHOCYTES % (AUTO) 22.6 %; MEAN CORPUSCULAR HEMOGLOBIN 29.9 pg (27.0-31.0); MEAN CORPUSCULAR VOLUME 93.2 fL (80.0-94.0); MEAN PLATELET VOLUME 10.1 fL (7.4-11.4); MONOCYTES % (AUTO) 7.7 %; NEUTROPHILS # (AUTO) 8.7 10^3/uL (1.5-6.6); NEUTROPHILS % (AUTO) 68.8 %; PLT - PLATELET COUNT 266 10^3/uL (130-450); RED BLOOD COUNT 4.12 10^6/uL (4.70-6.10); RED CELL DISTRIBUTION WIDTH 15.5 % (12.0-15.0); WHITE BLOOD COUNT 12.6 x10^3/uL (4.8-10.8)
[2022-09-02] MEDS ORDERED: ALBUTEROL NEB 2.5 MG/3 ML INH STA (04:23)
[2022-09-02 04:25] LABS: ALBUMIN/GLOBULIN RATIO 0.8 (1.0-2.2); BILIRUBIN,TOTAL 0.6 mg/dL (0.2-1.0); CREATININE 1.2 mg/dL (0.6-1.2)
[2022-09-02 05:00] LABS: B. PARAPERTUSSIS- RESP PCR PAN NOT DETECTED; B. PERTUSSIS- RESP PCR PANEL NOT DETECTED; C. PNEUMONIAE- RESP PCR PANEL NOT DETECTED; CORONAVIRUS 229E-RESP PCR NOT DETECTED; CORONAVIRUS HKU1-RESP PCR NOT DETECTED; CORONAVIRUS NL63-RESP PCR NOT DETECTED; CORONAVIRUS OC43-RESP PCR NOT DETECTED; HUMAN METAPNEUMOVIRUS NOT DETECTED; INFLUENZA A- RESP PCR PANEL NOT DETECTED; INFLUENZA B - RESP PCR PANEL NOT DETECTED; M. PNEUMONIAE- RESP PCR PANEL NOT DETECTED; PARAINFLUENZA VIRUS 1 NOT DETECTED; PARAINFLUENZA VIRUS 2 NOT DETECTED; PARAINFLUENZA VIRUS 3 NOT DETECTED; PARAINFLUENZA VIRUS 4 NOT DETECTED; RHINOVIRUS/ENTEROVIRUS DETECTED; RSV- RESP PCR PANEL NOT DETECTED; SARS-CoV-2 -RESP PCR PANEL NOT DETECTED
[2022-09-02] MEDS ORDERED: AZITHROMYCIN INJ 500 MG in SODIUM CHLORIDE 0.9% 250 ML IV STA (05:54)
[2022-09-02] MEDS ORDERED: cefTRIAXone 1 GM in SODIUM CHLORIDE 0.9% MINIBAG 100 ML IV STA (05:54)
[2022-09-02] MEDS ORDERED: cefTRIAXone 1 GM VIAL ONE (06:23)
--- NOTE | 2022-09-02 11:00 | XRAY Report ---
PROCEDURE: Chest 1 View X-Ray INDICATIONS: dyspnea TECHNIQUE: One view of the chest was acquired. COMPARISON: Chest x-ray 01/01/22 FINDINGS: Surgical changes and devices: None. Lungs and pleura: No pleural effusions or pneumothorax. Lungs are hyperinflated suggestive of COPD. Ill-defined opacities are present appearing uniformly more prominent compared to prior exam. Mediastinum: Mediastinal contours appear normal. Heart size is normal. Bones and chest wall: No suspicious bony lesions. Overlying soft tissues appear unremarkable. IMPRESSION: Ill-defined opacity minimally more prominent when compared to prior exam. This could represent develo pment of infection or inflammation or alternately progression of chronic interstitial change. Reviewed by: Jacy Johnson MD on 09/02/2022 10:59 AM PST Approved by: Jacy Johnson MD on 09/02/2022 10:59 AM [facility] Station ID: [id number]
[2022-09-02 14:47] VITALS: BP 110/70
== END 2022-09-02 15:16 | disposition home or self-care (01) ==
LOC: EDUNIT# → EDSEX → ED 03:43
DX: J44.1 Chronic obstructive pulmonary disease with (acute) exacerbation (principal); Z20.822 Contact with and (suspected) exposure to COVID-19; Z87.891 Personal history of nicotine dependence; Z79.51 Long term (current) use of inhaled steroids; Z79.899 Other long term (current) drug therapy
CPT/HCPCS: 36415; 80053; 83690; 83880; 84484; 85025; 87633; 93005; 94640; 96365; 96367; 99284

== ENCOUNTER 2023-12-15 04:44 | Outpatient (CLI) | payer OTHER | END 2023-12-15 23:59 | disposition critical access hospital (66) | LOC: EMS 04:44 | DX: J44.1 Chronic obstructive pulmonary disease with (acute) exacerbation (principal); R00.0 Tachycardia, unspecified | CPT/HCPCS: A0425; A0427 ==

== ENCOUNTER 2023-12-15 05:11 | Emergency (ER) | payer OTHER ==
[2023-12-15 05:34] LABS: BASOPHILS # (AUTO) 0.1 10^3/uL (0.0-0.1); BASOPHILS % (AUTO) 0.4 %; EOSINOPHILS # (AUTO) 0.1 10^3/uL (0.0-0.7); EOSINOPHILS % (AUTO) 0.6 %; HCT - HEMATOCRIT 39.8 % (42.0-52.0); HGB - HEMOGLOBIN 12.6 g/dL (14.0-18.0); LYMPHOCYTES # (AUTO) 2.3 10^3/uL (1.5-3.5); LYMPHOCYTES % (AUTO) 14.3 %; MEAN CORPUSCULAR HEMOGLOBIN 30.4 pg (27.0-31.0); MEAN CORPUSCULAR HGB CONC 31.7 g/dL (32.0-36.0); MEAN CORPUSCULAR VOLUME 95.9 fL (80.0-94.0); MEAN PLATELET VOLUME 9.5 fL (7.4-11.4); MONOCYTES # (AUTO) 1.9 10^3/uL (0.0-1.0); MONOCYTES % (AUTO) 12.1 %; NEUTROPHILS # (AUTO) 11.5 10^3/uL (1.5-6.6); NEUTROPHILS % (AUTO) 72.2 %; PLT - PLATELET COUNT 326 10^3/uL (130-450); RED BLOOD COUNT 4.15 10^6/uL (4.70-6.10); RED CELL DISTRIBUTION WIDTH 15.7 % (12.0-15.0)
--- NOTE | 2023-12-15 05:34 | ED Physician Documentation ---
History of Present Illness - Stated complaint Stated Complaint: SOA - Chief complaint Chief Complaint: Resp - History obtained from History obtained from: Patient, EMS - Additonal information Additional information: The patient comes to the emergency department chief complaint of shortness of breath. He has a history of COPD and states for the last 4 to 5 days he is just been feeling tired and more short of breath than usual. He is still a smoker but has not smoked in the last few days. He states that he uses oxygen as needed at home and really had not used it at all in a couple of months until these last several days. He states he put it on and then fall asleep on and take it off when he woke up. He states that generally seem like the oxygen was helping him much. The patient denies fevers or chills. He has had a dry cough but not much more than usual. No rhinorrhea. Who states his son just and is here from [place] to help his daughter take care of the affairs. He has nebulizer machine but he left it at home in [place] and so he has not been able to use it since he has been feeling bad. He received a DuoNeb and Solu-Medrol en route, and is feeling much better. No cardiac issues. No other complaints at this time. PD PAST MEDICAL HISTORY - Past Medical History Past Medical History: Yes Cardiovascular: None Respiratory: COPD, Emphysema Neuro: None Endocrine/Autoimmune: None GI: None : None HEENT: None Psych: Bipolar disorder, Post traumatic stress disorder Musculoskeletal: None Derm: None - Past Surgical History Past Surgical History: Yes - Present Medications Home Medications: Ambulatory Orders Medication Instructions Recorded Confirmed Cetirizine HCl 1 mg PO DAILY 11/22/13 09/02/22 Valproic Acid [Stavzor] 125 mg PO DAILY 11/22/13 09/02/22 Ipratropium/Albuterol Sulfate 1 puffs IH QID 09/15/16 09/02/22 [Combivent Respimat 20-100 Mcg] Albuterol Sulf [Ventolin Hfa 1 - 2 puffs INH Q4HR PRN #1 inhaler 12/23/17 09/02/22 Inhaler] Albuterol 2.5 mg INH Q4H PRN #30 neb 03/12/19 09/02/22 Terazosin [Hytrin] 2 mg PO DAILY 01/02/22 09/02/22 predniSONE [Deltasone] 10 mg PO DAILY 8 Days #8 tablet 01/04/22 09/02/22 Albuterol 2.5 mg INH Q4H PRN #30 ml 09/02/22 Azithromycin [Zithromax] 250 mg PO DAILY #4 tablet 09/02/22 predniSONE [Deltasone] 40 mg PO DAILY 5 Days #10 tablet 09/02/22 Albuterol Sulf [Ventolin Hfa 1 - 2 puffs INH Q4HR PRN #1 each 12/15/23 Inhaler] Azithromycin [Zithromax] 0 mg PO DAILY #6 tablet 12/15/23 predniSONE [Deltasone] 10 mg PO [id number] #42 tab 12/15/23 - Allergies Allergies/Adverse Reactions: Allergies Allergy/AdvReac Type Severity Reaction Status Date / Time No Known Drug Allergies Allergy Verified 12/15/23 05:22 - Social History Does the pt smoke?: Yes Smoking Status: Current every day smoker Does the pt drink ETOH?: Yes Does the pt have substance abuse?: No - Immunizations Immunizations are current?: Yes Immunizations: TDAP >10years/unknown, Other immun not current - POLST Patient has POLST: No POLST Status: Full Code PD ED PE NORMAL - Vitals Vital signs reviewed: Yes - General General: Alert and oriented X 3, No acute distress, Other (Thin, disheveled man who appears older than stated age in no apparent distress.) - HEENT HEENT: Atraumatic, EOMI, Moist mucous membranes - Neck Neck: Supple, no meningeal sign - Cardiac Cardiac: RRR, No murmur, Strong equal pulses - Respiratory Respiratory: No respiratory distress, Clear bilaterally, Other (Mildly diminished breath sounds bilaterally.) - Abdomen Abdomen: Soft, Non tender, Non distended - Derm Derm: Normal color, Warm and dry, No rash - Extremities Extremities: No deformity, No edema - Neuro Neuro: Other (Alert, grossly intact.) - Psych Psych: Normal mood, Normal affect Results - Vitals Vitals: Vital Signs - 24 hr 12/15/23 12/15/23 05:18 06:45 Temperature 37.2 C Heart Rate 102 H 88 Respiratory 25 H 20 Rate Blood Pressure 140/60 H 138/68 H O2 Saturation 98 94 Oxygen O2 Source Nasal cannula Oxygen Flow Rate 4 - Labs Labs: Laboratory Tests 12/15/23 12/15/23 12/15/23 05:24 05:24 05:24 WBC 16.0 H RBC 4.15 L Hgb 12.6 L Hct 39.8 L MCV 95.9 H MCH 30.4 MCHC 31.7 L RDW 15.7 H Plt Count 326 MPV 9.5 Neut # (Auto) 11.5 H Lymph # (Auto) 2.3 [place] # (Auto) 1.9 H Eos # (Auto) 0.1 Baso # (Auto) 0.1 Absolute Nucleated RBC 0.00 Band Neuts % (Manual) Not Reportable Abnorm Lymph % (Manual) Not Reportable Nucleated RBC % 0.0 Neutrophils # (Manual) Not Reportable Lymphocytes # (Manual) Not Reportable Monocytes # (Manual) Not Reportable Eosinophils # (Manual) Not Reportable Basophils # (Manual) Not Reportable Differential Comment MANUAL=AUTO DIFF Platelet Estimate NORMAL (130-450,000) RBC Morph Micro Appear NORMAL APPEARANCE Bld Gas Analysis Time Sample Site ABG pH ABG pCO2 ABG pO2 ABG HCO3 ABG Total CO2 ABG O2 Saturation ABG Base Excess Joseluis Test O2 Delivery Device O2 Liters/Min Sodium 137 Potassium 3.8 Chloride 97 L Carbon Dioxide 33 H Anion Gap 7.0 BUN 15 Creatinine 0.9 Estimated GFR (MDRD) 83 L Glucose 123 H Calcium 9.7 Total Bilirubin 0.5 AST 21 ALT 20 Alkaline Phosphatase 77 Total Protein 7.3 Albumin 3.6 Globulin 3.7 Albumin/Globulin Ratio 1.0 Lipase < 10 L Nasal Adenovirus (PCR) NOT DETECTED Nasal B. parapertussis DNA (PCR) NOT DETECTED Nasal Coronavir 229E PCR NOT DETECTED Nasal Coronavir HKU1 PCR NOT DETECTED Nasal Coronavir NL63 PCR NOT DETECTED Nasal Coronavir OC43 PCR NOT DETECTED Nasal Enterovir/Rhinovir PCR DETECTED A Nasal Influenza B PCR NOT DETECTED Nasal Influenza A PCR NOT DETECTED Nasal Parainfluen 1 PCR NOT DETECTED Nasal Parainfluen 2 PCR NOT DETECTED Nasal Parainfluen 3 PCR NOT DETECTED Nasal Parainfluen 4 PCR NOT DETECTED Nasal RSV (PCR) NOT DETECTED Nasal B.pertussis DNA PCR NOT DETECTED Nasal C.pneumoniae (PCR) NOT DETECTED Pako Human Metapneumo PCR NOT DETECTED Nasal M.pneumoniae (PCR) NOT DETECTED Nasal SARS-CoV-2 (PCR) NOT DETECTED 12/15/23 06:03 WBC RBC Hgb Hct MCV MCH MCHC RDW Plt Count MPV Neut # (Auto) Lymph # (Auto) [place] # (Auto) Eos # (Auto) Baso # (Auto) Absolute Nucleated RBC Band Neuts % (Manual) Abnorm Lymph % (Manual) Nucleated RBC % Neutrophils # (Manual) Lymphocytes # (Manual) Monocytes # (Manual) Eosinophils # (Manual) Basophils # (Manual) Differential Comment Platelet Estimate RBC Morph Micro Appear Bld Gas Analysis Time 0608 Sample Site RIGHT RADIAL ABG pH 7.33 L ABG pCO2 52 H ABG pO2 70 L ABG HCO3 26.9 H ABG Total CO2 28.5 ABG O2 Saturation 93 L ABG Base Excess 0.3 Joseluis Test POSITIVE O2 Delivery Device NASAL CANNULA O2 Liters/Min 3.00 Sodium Potassium Chloride Carbon Dioxide Anion Gap BUN Creatinine Estimated GFR (MDRD) Glucose Calcium Total Bilirubin AST ALT Alkaline Phosphatase Total Protein Albumin Globulin Albumin/Globulin Ratio Lipase Nasal Adenovirus (PCR) Nasal B. parapertussis DNA (PCR) Nasal Coronavir 229E PCR Nasal Coronavir HKU1 PCR Nasal Coronavir NL63 PCR Nasal Coronavir OC43 PCR Nasal Enterovir/Rhinovir PCR Nasal Influenza B PCR Nasal Influenza A PCR Nasal Parainfluen 1 PCR Nasal Parainfluen 2 PCR Nasal Parainfluen 3 PCR Nasal Parainfluen 4 PCR Nasal RSV (PCR) Nasal B.pertussis DNA PCR Nasal C.pneumoniae (PCR) Pako Human Metapneumo PCR Nasal M.pneumoniae (PCR) Nasal SARS-CoV-2 (PCR) - Rads (name of study) chest XR Relevant Findings:: EMP independent interpretation of test (RLL infiltrate) PD Medical Decision Making - ED course Complexity details: reviewed results, re-evaluated patient, considered differential, d/w patient ED course: The patient was worked up with labs, EKG, ABG and chest x-ray while in the emergency department. A respiratory PCR panel was also obtained. He did not fe el as if he needed another treatment at this point in time. The patient's labs showed a leukocytosis but were otherwise fairly unremarkable. ABG showed a pH of 7.3, pCO2 of 52, and pO2 of 70 on 2 L of oxygen per nasal cannula. The patient was maintaining oxygen saturation of mid to upper 90s on the supplemental O2. His respiratory PCR panel was positive for rhinovirus and his chest x-ray showed what appeared to be a small right lower lobe infiltrate by my interpretation. He was given Rocephin and Zithromax for this. I am sending prescriptions for the rest of his Zithromax as well as a prednisone taper and an albuterol inhaler to the pharmacy of his choice. The patient feels much better and would like to go home. We have discussed the need for follow-up when he returns to [place], as well as the usual indications for return. Departure - Departure Disposition: 01 Home, Self Care Clinical Impression: Acute exacerbation of chronic obstructive pulmonary disease (COPD), Rhinovirus infection Pneumonia Qualifiers: Pneumonia type: due to unspecified organism Laterality: right Lung location: lower lobe of lung Qualified Code(s): J18.9 - Pneumonia, unspecified organism Condition: Stable Instructions: ED Pneumonia Adult, ED COPD Flare Prescriptions: Albuterol Sulf [Ventolin Hfa Inhaler] 1 - 2 puffs INH Q4HR PRN #1 each PRN Reason: Shortness Of Air/Wheezing predniSONE [Deltasone] 10 mg PO [id number] #42 tab Azithromycin [Zithromax] 0 mg PO DAILY #6 tablet Comments: Your chest x-ray shows a very small area that looks like maybe a little pneumonia at the bottom of your right lung. You have been started on antibiotics for this. Your viral panel was positive for rhinovirus, which is a common cold virus and this also may be contributing to the flareup of your COPD. Your labs show an elevated white blood cell count which is not surprising with all that is been going on, but otherwise, your labs look fairly good as your blood gases. You have been maintaining good oxygen saturation on your supplemental oxygen and until you are feeling better, you should use your oxygen at home. A prescription for your antibiotic course, as well as for the steroid and an inhaler, has been electronically transmitted to the [facility] pharmacy in [place]. Please pick this up today. Forms: PCP List
[2023-12-15 05:45] LABS: ALBUMIN 3.6 g/dL (3.2-5.5); ALKALINE PHOSPHATASE 77 IU/L (42-121); ALT ALANINE AMINOTRANSFERASE 20 IU/L (10-60); AST ASPARTATE AMINOTRANSFERASE 21 IU/L (10-42); BILIRUBIN,TOTAL 0.5 mg/dL (0.2-1.0); BUN - BLOOD UREA NITROGEN 15 mg/dL (6-20); CALCIUM 9.7 mg/dL (8.5-10.3); CARBON DIOXIDE - CO2 33 mmol/L (21-32); CHLORIDE 97 mmol/L (101-111); CREATININE 0.9 mg/dL (0.6-1.3); GFR - MDRD 83 (>89); GLUCOSE 123 mg/dL (74-104); POTASSIUM 3.8 mmol/L (3.5-4.5); SODIUM 137 mmol/L (135-145); TOTAL PROTEIN 7.3 g/dL (6.4-8.9)
[2023-12-15 05:47] LABS: LIPASE < 10 U/L (11-82)
[2023-12-15] MEDS: SODIUM CHLORIDE 0.9% 1,000 ML IV STA (05:58)
[2023-12-15 06:00] LABS: DIFFERENTIAL COMMENT MANUAL=AUTO DIFF; PLATELET ESTIMATE, MANUAL NORMAL (130-450,000) (NORMAL); RBC MORPHOLOGY (MULTIPLE) NORMAL APPEARANCE (NORMAL)
[2023-12-15 06:09] LABS: ABG HCO3 26.9 mmol/L (22.0-26.0); ABG PCO2 52 mmHg (34-45); ABG PH 7.33 (7.35-7.45); ABG PO2 70 mmHg (80-100); ABG TCO2 28.5 MMOL/L (21.0-29.0)
[2023-12-15 06:10] LABS: ABG BASE EXCESS 0.3 mmol/L (-2.0-3.0); ABG OXYGEN SATURATION 93 % (94-98); ALLEN TEST POSITIVE
[2023-12-15 06:28] LABS: CORONAVIRUS 229E-RESP PCR NOT DETECTED; CORONAVIRUS HKU1-RESP PCR NOT DETECTED; CORONAVIRUS NL63-RESP PCR NOT DETECTED; CORONAVIRUS OC43-RESP PCR NOT DETECTED; HUMAN METAPNEUMOVIRUS NOT DETECTED; INFLUENZA A- RESP PCR PANEL NOT DETECTED; RHINOVIRUS/ENTEROVIRUS DETECTED; SARS-CoV-2 -RESP PCR PANEL NOT DETECTED
[2023-12-15 06:29] LABS: B. PARAPERTUSSIS- RESP PCR PAN NOT DETECTED; B. PERTUSSIS- RESP PCR PANEL NOT DETECTED; C. PNEUMONIAE- RESP PCR PANEL NOT DETECTED; INFLUENZA B - RESP PCR PANEL NOT DETECTED; M. PNEUMONIAE- RESP PCR PANEL NOT DETECTED; PARAINFLUENZA VIRUS 1 NOT DETECTED; PARAINFLUENZA VIRUS 2 NOT DETECTED; PARAINFLUENZA VIRUS 3 NOT DETECTED; PARAINFLUENZA VIRUS 4 NOT DETECTED; RSV- RESP PCR PANEL NOT DETECTED
[2023-12-15] MEDS ORDERED: cefTRIAXone 2 GM VIAL ONE (06:36)
[2023-12-15] MEDS: cefTRIAXone 2 GM in SODIUM CHLORIDE 0.9% MINIBAG 100 ML IV STA (06:40)
[2023-12-15] MEDS: AZITHROMYCIN 250 MG TABLET PO STA (06:40)
--- NOTE | 2023-12-15 08:20 | XRAY Report ---
PROCEDURE: Chest 1V INDICATIONS: sob TECHNIQUE: One view of the chest was acquired. COMPARISON: 09/02/2022 FINDINGS: Surgical changes and devices: None. Lungs and pleura: Mildly prominent interstitium again seen. Overall hyperinflated lungs. No pleural effusions. Mediastinum: Normal heart size Bones and chest wall: Degenerative changes. IMPRESSION: There is mild diffuse lung disease similar to prior, representing infection and/or edema. Consider fu ture imaging surveillance to assess for resolution. Agree with preliminary report Reviewed by: Oleg Bui MD on 12/15/2023 8:18 AM PDT Approved by: Oleg Bui MD on 12/15/2023 8:18 AM PDT Station ID: [id number]
[2023-12-15 09:37] VITALS: BP 118/54; O2SAT 98
== END 2023-12-15 09:33 | disposition home or self-care (01) ==
LOC: EDUNIT# → ED 05:11
DX: J44.1 Chronic obstructive pulmonary disease with (acute) exacerbation (principal); J18.9 Pneumonia, unspecified organism; B34.8 Other viral infections of unspecified site; Z79.899 Other long term (current) drug therapy; F17.200 Nicotine dependence, unspecified, uncomplicated
CPT/HCPCS: 36415; 36600; 71045; 80053; 82803; 83690; 85025; 87633; 93005; 96365; 99284; A9270

== ENCOUNTER 2024-01-26 23:13 | Outpatient (CLI) | payer OTHER | END 2024-01-26 23:14 | disposition critical access hospital (66) | LOC: EMS 23:13 | DX: R51.9 Headache, unspecified (principal); M54.2 Cervicalgia; M54.6 Pain in thoracic spine; R42 Dizziness and giddiness; H11.33 Conjunctival hemorrhage, bilateral; S00.12XA Contusion of left eyelid and periocular area, initial encounter; S00.11XA Contusion of right eyelid and periocular area, initial encounter; S10.93XA Contusion of unspecified part of neck, initial encounter; Y04.2XXA Assault by strike against or bumped into by another person, initial encounter; Y04.8XXA Assault by other bodily force, initial encounter; Y92.89 Other specified places as the place of occurrence of the external cause | CPT/HCPCS: A0425; A0429 ==

== ENCOUNTER 2024-01-26 23:40 | Emergency (ER) | payer OTHER ==
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
[2024-01-27 00:20] LABS: BASOPHILS % (AUTO) 0.3 %; EOSINOPHILS # (AUTO) 0.1 10^3/uL (0.0-0.7); EOSINOPHILS % (AUTO) 1.5 %; HCT - HEMATOCRIT 41.7 % (42.0-52.0); HGB - HEMOGLOBIN 13.3 g/dL (14.0-18.0); LYMPHOCYTES # (AUTO) 1.4 10^3/uL (1.5-3.5); LYMPHOCYTES % (AUTO) 15.6 %; MEAN CORPUSCULAR HEMOGLOBIN 31.4 pg (27.0-31.0); MEAN CORPUSCULAR HGB CONC 31.9 g/dL (32.0-36.0); MEAN CORPUSCULAR VOLUME 98.3 fL (80.0-94.0); MEAN PLATELET VOLUME 9.6 fL (7.4-11.4); MONOCYTES # (AUTO) 0.9 10^3/uL (0.0-1.0); MONOCYTES % (AUTO) 10.1 %; NEUTROPHILS # (AUTO) 6.4 10^3/uL (1.5-6.6); NEUTROPHILS % (AUTO) 72.2 %; PLT - PLATELET COUNT 223 10^3/uL (130-450); RED BLOOD COUNT 4.24 10^6/uL (4.70-6.10); RED CELL DISTRIBUTION WIDTH 15.8 % (12.0-15.0); WHITE BLOOD COUNT 8.9 x10^3/uL (4.8-10.8)
[2024-01-27 00:38] LABS: CALCIUM 9.7 mg/dL (8.5-10.3); CREATININE 1.1 mg/dL (0.6-1.3); POTASSIUM 4.6 mmol/L (3.5-4.5)
[2024-01-27 00:41] LABS: TROPONIN I HIGH SENSITIVITY 9.3 ng/L (2.3-19.7)
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
[2024-01-27] MEDS: PROPARACAINE 0.5% OPHTH DROPS 15 ML RIGHTEYE STA (02:22)
[2024-01-27] MEDS: POLYMYXIN B/TRIMETH OPHTH DROPS RIGHTEYE STA (02:57)
[2024-01-27 03:47] VITALS: BP 125/78; O2SAT 99
== END 2024-01-27 03:38 | disposition home or self-care (01) ==
LOC: EDUNIT# → ED 23:40
DX: S05.01XA Injury of conjunctiva and corneal abrasion without foreign body, right eye, initial encounter (principal); S51.011A Laceration without foreign body of right elbow, initial encounter; Y04.8XXA Assault by other bodily force, initial encounter; H11.30 Conjunctival hemorrhage, unspecified eye; J44.9 Chronic obstructive pulmonary disease, unspecified; Z79.899 Other long term (current) drug therapy; F17.200 Nicotine dependence, unspecified, uncomplicated
CPT/HCPCS: 36415; 70450; 71045; 72125; 80048; 84484; 85025; 93005; 99283; 99284; A9270; J3490

== ENCOUNTER 2024-05-06 17:55 | Inpatient (IN) ==
[2024-05-06] MEDS ORDERED: IPRATROPIUM/ALBUTEROL 3 ML NEB INH ONE (18:33)
[2024-05-06] MEDS: IPRATROPIUM/ALBUTEROL 3 ML NEB INH STA ×2 (18:35→23:26)
[2024-05-06 18:36] LABS: BASOPHILS % (AUTO) 0.3 %; EOSINOPHILS # (AUTO) 0.2 10^3/uL (0.0-0.7); EOSINOPHILS % (AUTO) 1.6 %; HCT - HEMATOCRIT 45.3 % (42.0-52.0); HGB - HEMOGLOBIN 14.2 g/dL (14.0-18.0); LYMPHOCYTES # (AUTO) 1.9 10^3/uL (1.5-3.5); LYMPHOCYTES % (AUTO) 17.6 %; MEAN CORPUSCULAR HEMOGLOBIN 31.3 pg (27.0-31.0); MEAN CORPUSCULAR HGB CONC 31.3 g/dL (32.0-36.0); MEAN PLATELET VOLUME 9.8 fL (7.4-11.4); MONOCYTES # (AUTO) 1.1 10^3/uL (0.0-1.0); MONOCYTES % (AUTO) 10.2 %; NEUTROPHILS # (AUTO) 7.5 10^3/uL (1.5-6.6); PLT - PLATELET COUNT 199 10^3/uL (130-450); RED BLOOD COUNT 4.53 10^6/uL (4.70-6.10); RED CELL DISTRIBUTION WIDTH 14.2 % (12.0-15.0); WHITE BLOOD COUNT 10.7 x10^3/uL (4.8-10.8)
[2024-05-06] MEDS: methylPREDNISolone SUCCINATE 125 MG/2 ML VIAL IVP STA (18:38)
--- NOTE | 2024-05-06 18:38 | ED Physician Documentation ---
History of Present Illness Stated complaint Stated Complaint: SOA Chief complaint Chief Complaint: Resp History obtained from History obtained from: Patient History of Present Illness Timing: How many days ago Pain level max: 0 Pain level now: 0 Additonal information Additional information: 68-year-old male, history of COPD, has intermittent oxygen use at home but does not use regularly. Cough, congestion for the past several days increased work of breathing today. Uses albuterol without relief. No fevers. No chills. The cough is unchanged from his baseline. No recent travel. No abdominal pain. No chest pain. No nausea or vomiting. No diarrhea. Review of Systems Constitutional Denies: Fever or Chills Musculoskeletal Denies: Back pain Exam Exam Moderate respiratory distress. Speaking in single word sentences Constitutional thin, frail HENMT normocephalic, oral mucous membranes normal and oropharynx normal Eyes PERRL Neck/C-Spine visual inspection normal and trachea midline Respiratory Very diminished breath sounds bilaterally, increased work of breathing, wheezing bilaterally Cardiovascular normal heart rate noted and regular rhythm noted Gastrointestinal abdomen soft to palpation, nontender to palpation and nondistended Genitourinary no CVA tenderness Extremities no edema Psychiatry mental status grossly normal and oriented x3 Results Vitals Vitals: Vital Signs - 24 hr 05/06/24 18:11 05/06/24 18:27 05/06/24 18:29 Temperature 36.6 C Temperature Source Temporal Artery Scan Pulse Rate 103 H 79 Respiratory Rate 24 22 Blood Pressure 147/77 H 139/74 H O2 Saturation 87 L 100 Oxygen Delivery Method Nasal Cannula O2 Source Room air Nasal cannula If not protocol: Oxygen Flow, liters/minute 4 Pain Intensity 0 0 05/06/24 18:35 05/06/24 18:49 05/06/24 18:52 Temperature Temperature Source Pulse Rate 78 80 Respiratory Rate 24 20 Blood Pressure 139/74 H O2 Saturation 100 Oxygen Delivery Method Nasal Cannula O2 Source Nasal cannula Nasal cannula If not protocol: Oxygen Flow, liters/minute 4 2 2 Pain Intensity 0 Oxygen O2 Source Nasal cannula Labs Labs: Laboratory Tests 05/06/24 18:25 WBC 10.7 RBC 4.53 L Hgb 14.2 Hct 45.3 MCV 100.0 H MCH 31.3 H MCHC 31.3 L RDW 14.2 Plt Count 199 MPV 9.8 Neut # (Auto) 7.5 H Lymph # (Auto) 1.9 [place] # (Auto) 1.1 H Eos # (Auto) 0.2 Baso # (Auto) 0.0 Absolute Nucleated RBC 0.00 Nucleated RBC % 0.0 Sodium 138 Potassium 4.4 Chloride 100 L Carbon Dioxide 33 H Anion Gap 5.0 L BUN 16 Creatinine 1.0 Estimated GFR (MDRD) 74 L Glucose 125 H Calcium 9.2 Total Bilirubin 0.3 AST 16 ALT 13 Alkaline Phosphatase 85 Total Creatine Kinase 79 Total Protein 6.6 Albumin 4.0 Globulin 2.6 Albumin/Globulin Ratio 1.5 PD Medical Decision Making ED course Complexity details: reviewed results and d/w patient ED course: Patient with what appears to be a COPD exacerbation. Given IV Solu-Medrol, DuoNeb. Increase work of breathing continues, but improving. Patient will be signed out to Dr. Higgins for continued medication administration and reevaluation. No pneumonia on chest x-ray. He is hypoxic and does not use oxygen regularly at home. This document was made in part using voice recognition software. While efforts are made to proofread this document, sound alike and grammatical errors may occur. [facility] Medical History Medical History (Updated 05/06/24 @ 19:14 by Omid Hairston MD) COPD (chronic obstructive pulmonary disease) Social History Social History (Updated 05/06/24 @ 18:16 by Betito Calvo RN) Smoking Status: Current every day smoker If you are a former smoker, when did you quit? (Date/Year): December 29, 2021 Number of Years Smoked: 40 How many cigarettes a day do you smoke? (20 cigarettes=1 Pk): 20 Do you vape?: No Patient requests smoking cessation consult: No Initiate information on smoking cessation: Yes Living arrangement: At home and Homeless Living Condition: With spouse/s.o. Relationship: Do you feel safe in your home environment?: Yes Suffered physical, verbal, emotional, or financial abuse?: No History of Abuse: No ETOH Use: None Frequency: Weekly Substance Use: denies use Are you sexually active?: No POLST Patient has POLST: No POLST Status: Full Code Discharge Plan Discharge Clinical Impression: Acute exacerbation of chronic obstructive pulmonary disease Prescriptions: No Action cetirizine 1 MG/1 ML solution 1 mg PO DAILY Stavzor 125 MG capsule,delayed release(DR/EC) 125 mg PO DAILY Combivent Respimat 4 GM mist 1 puff IH QID albuterol sulfate [Ventolin HFA] 200 PUFFS/18 GM HFA aerosol inhaler 1 - 2 puff inhalation Q4HR PRN (Reason: Shortness Of Air/Wheezing) Qty: 1 0RF albuterol sulfate 2.5 MG/3 ML solution for nebulization 2.5 mg inhalation Q4H PRN (Reason: Wheezing) Qty: 30 0RF Rx Instructions: 1 AMPULE terazosin 1 MG capsule 2 mg PO DAILY albuterol sulfate 2.5 MG/3 ML solution for nebulization 2.5 mg inhalation Q4H PRN (Reason: Wheezing) Qty: 30 0RF Rx Instructions: 1 AMPULE albuterol sulfate [Ventolin HFA] 200 PUFFS/18 GM HFA aerosol inhaler 1 - 2 puff inhalation Q4HR PRN (Reason: Shortness Of Air/Wheezing) Qty: 1 0RF Stand Alone Forms: PCP List
[2024-05-06 18:51] LABS: ALBUMIN/GLOBULIN RATIO 1.5 (1.0-2.2); BILIRUBIN,TOTAL 0.3 mg/dL (0.2-1.0); CALCIUM 9.2 mg/dL (8.5-10.3); POTASSIUM 4.4 mmol/L (3.5-4.5); TOTAL PROTEIN 6.6 g/dL (6.4-8.9)
--- NOTE | 2024-05-06 18:59 | XRAY Report ---
PROCEDURE: XR Chest 1V INDICATIONS: dyspnea TECHNIQUE: One view of the chest was acquired. COMPARISON: 01/27/2024 FINDINGS: Surgical changes and devices: None. Lungs and pleura: Mild peribronchial thickening. No dense airspace disease or pleural effusions. Na pected obstructive lung disease. Mediastinum: Heart and mediastinal contours are unchanged. Normal heart size Bones and chest wall: Degenerative changes IMPRESSION: Mild peribronchial thickening, possibly bronchitis. Suspect obstructive lung disease. No dense airspa ce consolidation or pleural effusions. Limited single view study. Reviewed by: Oleg Bui MD on 05/06/2024 6:57 PM PDT Approved by: Oleg Bui MD on 05/06/2024 6:57 PM PDT Station ID: [id number]
[2024-05-06 19:54] LABS: B. PARAPERTUSSIS- RESP PCR PAN NOT DETECTED; B. PERTUSSIS- RESP PCR PANEL NOT DETECTED; CORONAVIRUS 229E-RESP PCR NOT DETECTED; CORONAVIRUS HKU1-RESP PCR NOT DETECTED; CORONAVIRUS NL63-RESP PCR NOT DETECTED; CORONAVIRUS OC43-RESP PCR NOT DETECTED; HUMAN METAPNEUMOVIRUS NOT DETECTED; INFLUENZA A- RESP PCR PANEL NOT DETECTED; INFLUENZA B - RESP PCR PANEL NOT DETECTED; PARAINFLUENZA VIRUS 1 NOT DETECTED; PARAINFLUENZA VIRUS 2 NOT DETECTED; PARAINFLUENZA VIRUS 3 NOT DETECTED; PARAINFLUENZA VIRUS 4 NOT DETECTED; RHINOVIRUS/ENTEROVIRUS DETECTED; RSV- RESP PCR PANEL NOT DETECTED; SARS-CoV-2 -RESP PCR PANEL NOT DETECTED
[2024-05-06 19:55] LABS: C. PNEUMONIAE- RESP PCR PANEL NOT DETECTED; M. PNEUMONIAE- RESP PCR PANEL NOT DETECTED
[2024-05-06] MEDS: ALBUTEROL NEB 2.5 MG/3 ML INH STA (21:29)
--- NOTE | 2024-05-06 21:33 | ED Physician Documentation ---
ED Addendum Addendum Addendum: Usama Lenz is a 68-year-old male with a history of oxygen dependent COPD who presents to the emergency department today with an acute exacerbation of COPD. He has been administered a DuoNeb, albuterol, solumedrol, a chest x-ray has been obtained without evidence of infiltrate, patient's white blood cell count is normal and his respiratory panel is positive for rhinovirus. The patient is currently living in his car he is oxygen dependent and he has an ileostomy in place. I am advocating for the patient for admission to the hospital for exacerbation of COPD. We have administered additional nebulizer treatments without significant further improvement in the patient's dyspnea cough and oxygen saturation. He remains oxygen dependent. After multiple treatments the patient remains hypoxic, coughs in paroxysms and eventually has tight wheezing again. He is admtited under the care of the noturnist. Discharge Plan Discharge Patient Disposition: 66 [facility] [place] Clinical Impression: Acute exacerbation of chronic obstructive pulmonary disease Interventions: ED Admission Assessment Last Done: 05/07/24 02:35
--- NOTE | 2024-05-07 02:29 | HISTORY & PHYSICAL EXAMINATION ---
Chief Complaint Chief Complaint Chief Complaint: sob History of Present Illness History of Present Illness HPI Comment/Other: 68 y old male with PMH COPD prsented to ER due to SOB for 2 days. c/o cough with sputum. Denies hemoptysis, fever, chest pain On presentation, wt was tachypnic and hypoxic In ER, pt was given IV solumedrol, Nebs, CXR is neg for inflitrate Pt is admitted due to acute onchronic hypoxic resp failure due to COPD exacerbation [facility] Medical History Medical History (Updated 05/07/24 @ 02:29 by Alba Hinojosa MD) COPD (chronic obstructive pulmonary disease) Social History Social History (Updated 05/06/24 @ 18:16 by Betito Calvo RN) Smoking Status: Current every day smoker If you are a former smoker, when did you quit? (Date/Year): December 29, 2021 Number of Years Smoked: 40 How many cigarettes a day do you smoke? (20 cigarettes=1 Pk): 20 Do you vape?: No Patient requests smoking cessation consult: No Initiate information on smoking cessation: Yes Living arrangement: At home and Homeless Living Condition: With spouse/s.o. Relationship: Do you feel safe in your home environment?: Yes Suffered physical, verbal, emotional, or financial abuse?: No History of Abuse: No ETOH Use: None Frequency: Weekly Substance Use: denies use Are you sexually active?: No POLST Patient has POLST: No POLST Status: Full Code Meds/Allgy Home Medications Ambulatory Orders Medication Instructions Recorded Confirmed cetirizine 1 mg/mL oral solution 1 mg PO DAILY 11/22/13 05/06/24 valproic acid 125 mg 125 mg PO DAILY 11/22/13 05/06/24 capsule,delayed release (Stavzor) ipratropium 20 mcg-albuterol 100 1 puff IH QID 09/15/16 05/06/24 mcg/actuation mist for inhalation (Combivent Respimat) albuterol sulfate 90 mcg/actuation 1 - 2 puff inhalation Q4HR PRN 12/23/17 05/06/24 aerosol inhaler (Ventolin HFA) Shortness Of Air/Wheezing ##1 albuterol sulfate 2.5 mg/3 mL 2.5 mg (3 mL) inhalation Q4H PRN 03/12/19 05/06/24 (0.083 %) solution for nebulization Wheezing #30 neb terazosin 1 mg capsule 2 mg PO DAILY 01/02/22 05/06/24 albuterol sulfate 2.5 mg/3 mL 2.5 mg (3 mL) inhalation Q4H PRN 09/02/22 05/06/24 (0.083 %) solution for nebulization Wheezing #30 mL Allergies Allergies Allergy/AdvReac Type Severity Reaction Status Date / Time No Known Drug Allergies Allergy Verified 05/06/24 18:11 Conclusion/Plan Problem List (1) COPD exacerbation: Plan A: Acute on chronic hypoxic respiratory failure COPD exacerbation Acute bronchitis Rhinovirus infection Plan; Admit in tele Start solumedrol 40 mg iv q6h Duo nebs q4h prn start zithromax 500 mg iv daily Oxygen via NC to keep Sao2 around 92% DVT prophyalxic: SCD Full code Pt is admitted as inpatient as more than 2 midnight stay is expected Lab Results 05/06/24 18:25 05/06/24 18:25 Review of Systems Status of ROS: 10 or more systems reviewed and unremarkable except as noted in history and below Exam Constitutional normal general appearance HENMT normocephalic Eyes PERRL Neck/C-Spine visual inspection normal Chest inspection of chest normal Respiratory B/L ronchi Cardiovascular normal heart rate noted Gastrointestinal abdomen normal to inspection and nontender to palpation Extremities normal to inspection Neurology no focal motor deficit noted Skin no rash
[2024-05-07] MEDS: IPRATROPIUM/ALBUTEROL 3 ML NEB INH PRN (02:50)
[2024-05-07] MEDS: SODIUM CHLORIDE FLUSH 0.9% 10 ML SYRINGE IVP SCH (04:00)
[2024-05-07] MEDS: methylPREDNISolone SUCCINATE 40 MG/ML VIAL IVP SCH (04:00)
[2024-05-07] MEDS: AZITHROMYCIN INJ 500 MG in SODIUM CHLORIDE 0.9% 250 ML IV SCH (04:00)
--- NOTE | 2024-05-07 08:47 | PROVIDER PROGRESS NOTE ---
Subjective Subjective Subjective: Patient is a 68-year-old male who presented with COPD. He does not use any oxygen at home. He said that 2 days ago, he started noticing increased shortness of breath. He also endorses a cough productive of white to green to clear sputum. The sputum has increased in quantity. He also endorses some chills, but does not have any fevers. He does not recall any sick contacts. He denies any chest pain at this time. He is eating and drinking okay. Current Medications Current Medications Current Medications: Current Medications Generic Name Dose Route Start Last Admin Trade Name Freq PRN Reason Stop Dose Admin Albuterol/Ipratropium 3 ml 05/07/24 02:11 05/07/24 06:15 Ipratropium/Albuterol 3 Ml Neb INH 3 ml Q4HR PRN Administration Wheezing Azithromycin 500 mg/ Sodium 250 mls @ 250 mls/hr 05/07/24 03:00 05/07/24 05:12 Chloride IV Infused Q24H [facility]T Infusion Methylprednisolone 40 mg 05/07/24 03:00 05/07/24 04:00 Methylprednisolone Succinate 40 Mg/Ml Vial IVP 40 mg Q6H [facility] Administration Sodium Chloride 10 ml 05/07/24 09:00 05/07/24 04:00 Sodium Chloride Flush 0.9% 10 Ml Syringe IVP 10 ml 0100,0900,1700 ROO[facility]T Administration Objective Vital Signs/Intake & Output Reviewed Vital Signs: Yes Vital Signs: Vital Signs x48h Temp Pulse Pulse Pulse Resp BP BP 05/07/24 08:28 98.6 F 112 H 24 110/62 05/07/24 06:34 98.2 F 103 H 20 121/63 05/07/24 06:15 05/07/24 06:15 88 18 05/07/24 02:55 98.6 F 98 H 29 H 146/78 H 05/07/24 02:50 05/07/24 02:50 86 20 05/07/24 02:32 98.2 F 80 24 113/52 L 05/07/24 01:23 99 H 24 106/42 L Pulse Ox O2 Flow Rate 05/07/24 08:28 91 L 2 05/07/24 06:34 94 2 05/07/24 06:15 2 05/07/24 06:15 2 05/07/24 02:55 98 2 05/07/24 02:50 2 05/07/24 02:50 2 05/07/24 02:32 97 2 05/07/24 01:23 96 2 Intake & Output: Intake & Output 05/05/24 05/06/24 05/07/24 05/08/24 05:59 05:59 05:59 05:59 Intake Total 730 / 730 0 / 0 Output Total 500 / 500 Balance 730 / 730 -500 / -500 Weight (kg) 48.5 kg Objective General Appearance: positive Mild distress and Anxious Eyes Bilateral: positive Normal inspection, PERRL and EOMI ENT: positive ENT inspection nml, Pharynx nml and No signs of dehydration Neck: positive Nml inspection and Trachea midline Respiratory: positive Chest non-tender and Wheezes (Decreased air entry in all lung norris, wheezing in all lung norris, pronounced in bilateral upper lobes) Cardiovascular: positive Regular rate & rhythm, No murmur and No gallop Abdomen: positive Non-tender, No organomegaly, Nml bowel sounds and No distention; negative Guarding Skin: positive Color nml, No rash and Dry Extremities: positive Non-tender, Full ROM and Nml appearance Neurologic/Psychiatric: positive Oriented x3, Motor nml and Mood/affect nml Lab Results 05/06/24 18:25 05/06/24 18:25 Other Labs: Lab Results x24hrs 05/06/24 Range/Units 18:25 WBC 10.7 (4.8-10.8) x10^3/uL RBC 4.53 L (4.70-6.10) 10^6/uL Hgb 14.2 (14.0-18.0) g/dL Hct 45.3 (42.0-52.0) % MCV 100.0 H (80.0-94.0) fL MCH 31.3 H (27.0-31.0) pg MCHC 31.3 L (32.0-36.0) g/dL RDW 14.2 (12.0-15.0) % Plt Count 199 (130-450) 10^3/uL MPV 9.8 (7.4-11.4) fL Neut # (Auto) 7.5 H (1.5-6.6) 10^3/uL Lymph # (Auto) 1.9 (1.5-3.5) 10^3/uL Marinette # (Auto) 1.1 H (0.0-1.0) 10^3/uL Eos # (Auto) 0.2 (0.0-0.7) 10^3/uL Baso # (Auto) 0.0 (0.0-0.1) 10^3/uL Absolute Nucleated RBC 0.00 x10^3/uL Nucleated RBC % 0.0 /100WBC Sodium 138 (135-145) mmol/L Potassium 4.4 (3.5-4.5) mmol/L Chloride 100 L (101-111) mmol/L Carbon Dioxide 33 H (21-32) mmol/L Anion Gap 5.0 L (6-13) BUN 16 (6-20) mg/dL Creatinine 1.0 (0.6-1.3) mg/dL Estimated GFR (MDRD) 74 L (>89) Glucose 125 H (74-104) mg/dL Calcium 9.2 (8.5-10.3) mg/dL Total Bilirubin 0.3 (0.2-1.0) mg/dL AST 16 (10-42) IU/L ALT 13 (10-60) IU/L Alkaline Phosphatase 85 (42-121) IU/L Total Creatine Kinase 79 (30-223) IU/L Total Protein 6.6 (6.4-8.9) g/dL Albumin 4.0 (3.2-5.5) g/dL Globulin 2.6 (2.1-4.2) g/dL Albumin/Globulin Ratio 1.5 (1.0-2.2) Nasal Adenovirus (PCR) NOT DETECTED Nasal B. parapertussis DNA (PCR) NOT DETECTED Nasal Coronavir 229E PCR NOT DETECTED Nasal Coronavir HKU1 PCR NOT DETECTED Nasal Coronavir NL63 PCR NOT DETECTED Nasal Coronavir OC43 PCR NOT DETECTED Nasal Enterovir/Rhinovir PCR DETECTED A Nasal Influenza B PCR NOT DETECTED Nasal Influenza A PCR NOT DETECTED Nasal Parainfluen 1 PCR NOT DETECTED Nasal Parainfluen 2 PCR NOT DETECTED Nasal Parainfluen 3 PCR NOT DETECTED Nasal Parainfluen 4 PCR NOT DETECTED Nasal RSV (PCR) NOT DETECTED Nasal B.pertussis DNA PCR NOT DETECTED Nasal C.pneumoniae (PCR) NOT DETECTED Pako Human Metapneumo PCR NOT DETECTED Nasal M.pneumoniae (PCR) NOT DETECTED Nasal SARS-CoV-2 (PCR) NOT DETECTED Diagnostic Imaging Diagnostic Imaging Results: positive Final report reviewed Diagnostic Imaging Comments: Chest x-ray with mild peribronchial thickening. Hyperinflation noted. No consolidation or infiltrates noted. Assessment/Plan Problem List (1) COPD exacerbation: Impression: Patient presented with dyspnea, productive cough, chills for approximately 2 days. He has been using his inhalers at home with no relief. He does not use oxygen at home. Treat as COPD exacerbation. Continue Solu-Medrol 40 every 6 for 24 hours, followed by 5 days of prednisone. Continue azithromycin as there has been a change in quality and quantity of sputum production. Continue DuoNebs every 4 hours. (2) Rhinovirus: Impression: RVP positive for rhinovirus. Likely the trigger for his COPD exacerbation. Continue supportive treatment. (3) BPH (benign prostatic hyperplasia): Impression: Continue terazosin. Qualifiers: Lower urinary tract symptom presence: symptoms absent Qualified Code(s): N40.0 - Benign prostatic hyperplasia without lower urinary tract symptoms (4) Ileostomy in place: Impression: Patient manages on own and lives in care. Social work to see if any additional resources can be provided.
[2024-05-07] MEDS: IPRATROPIUM/ALBUTEROL 3 ML NEB INH SCH ×2 (11:17→19:10)
[2024-05-07] MEDS: BUDESONIDE 0.5 MG/2 ML NEB INH SCH (19:10)
[2024-05-07] MEDS: TERAZOSIN 2 MG CAPSULE PO SCH (20:29)
--- NOTE | 2024-05-07 22:03 | PROVIDER PROGRESS NOTE ---
Real Estate Office Manager Note Real Estate Office Manager Note Real Estate Office Manager Note: RN paged " pt with COPD, HR has increasing all day. now sustaining 125-130 ST on tele. He does receive duo-nebs every 4 hrs. bp 129/57; Just fyi if beta-holger would be appropriate. He did receive scheduled terazosin tonight for BPH. A: tachycardia. P: EKG stat. if ST, then monitor. continue as planned. r/o urine retention. consider iv fluid support. Jl White
[2024-05-08] MEDS: polyethylene glycoL 3350 17 GM PACKET PO SCH (09:05)
[2024-05-08] MEDS: ACETAMINOPHEN 325 MG TABLET PO PRN (09:32)
[2024-05-08] MEDS: CALCIUM CARBONATE CHEW 500 MG TABLET PO PRN (09:34)
--- NOTE | 2024-05-08 11:13 | PROVIDER PROGRESS NOTE ---
Documented by User: Chery Hart 05/08/24 11:13 Subjective Prog Note Date Prog Note Date: 05/08/24 Prog Note Time: 09:54 Subjective Pt reports feeling: Worse Subjective: Mr. Lenz is a 68 year old pleasant male who is admitted for a COPD exacerbation possibly due to rhinovirus. Today he reports his overall well being is worse than yesterday. He reports having a really bad heartburn that appeared while he was eating breakfast today. He did not have this heartburn yesterday. He reports he is coughing every hour with a teaspoon of clear sputum sometimes. Patient reports his chest feels tight and is wheezing when breathing. He reports he does not think it is necessary for him to be on oxygen. He also reports having a headache. Patient denies fever, chills, night sweats, nausea, vomiting, chest pain or palpitations, diarrhea, constipation, and abdominal discomfort. Current Medications Current Medications Current Medications: Current Medications Generic Name Dose Route Start Last Admin Trade Name Freq PRN Reason Stop Dose Admin Acetaminophen 650 mg 05/08/24 09:04 Acetaminophen 325 Mg Tablet PO Q4HR PRN Pain or Fever > 38C (100.4F) Albuterol/Ipratropium 3 ml 05/07/24 19:00 05/08/24 06:10 Ipratropium/Albuterol 3 Ml Neb INH 3 ml RTQID [facility] Administration Budesonide 0.5 mg 05/07/24 19:00 05/08/24 06:10 Budesonide 0.5 Mg/2 Ml Neb INH 0.5 mg RTBID [facility] Administration Calcium Carbonate/Glycine 500 mg 05/08/24 09:05 Calcium Carbonate Chew 500 Mg Tablet PO BID PRN Abdominal Pain Azithromycin 500 mg/ Sodium 250 mls @ 250 mls/hr 05/07/24 03:00 05/08/24 04:25 Chloride IV Infused Q24H [facility] Infusion Methylprednisolone 40 mg 05/07/24 03:00 05/08/24 08:09 Methylprednisolone Succinate 40 Mg/Ml Vial IVP 40 mg Q6H [facility] Administration Polyethylene Glycol 17 gm 05/08/24 08:25 05/08/24 09:06 Polyethylene Glycol 3350 17 Gm Packet PO Not Given DAILY [facility] Sodium Chloride 10 ml 05/07/24 09:00 05/08/24 04:49 Sodium Chloride Flush 0.9% 10 Ml Syringe IVP 10 ml 0100,0900,1700 [facility] Administration Terazosin HCl 2 mg 05/07/24 21:00 05/07/24 20:29 Terazosin 2 Mg Capsule PO 2 mg QPM [facility] Administration Throat Lozenges 1 lozenge 05/08/24 01:30 Benzocaine/Menthol Lozenge MM Q2HR PRN SOOTHE THROAT FROM COUGHING Objective Vital Signs/Intake & Output Reviewed Vital Signs: Yes Vital Signs: Vital Signs x48h Temp Pulse Pulse Pulse Resp BP Pulse Ox 05/08/24 08:07 37.2 C 121 H 22 127/65 92 05/08/24 06:10 05/08/24 06:10 107 H 18 05/08/24 04:41 36.7 C 110 H 16 112/59 L 95 O2 Flow Rate 05/08/24 08:07 2 05/08/24 06:10 2 05/08/24 06:10 2 05/08/24 04:41 2 Intake & Output: Intake & Output 05/06/24 05/07/24 05/08/24 05/09/24 05:59 05:59 05:59 05:59 Intake Total 730 / 730 1428 / 1428 237 / 237 Output Total 875 / 875 250 / 250 Balance 730 / 730 553 / 553 -13 / -13 Weight (kg) 48.5 kg Objective General Appearance: positive Mild distress Eyes Bilateral: positive Normal inspection, No lid inflammation, Conjunctivae nml and No scleral icterus Neck: positive Nml inspection, Thyroid nml and No JVD Respiratory: positive Wheezes Cardiovascular: positive Regular rate & rhythm, No murmur, No gallop and Tachycardia Abdomen: positive Non-tender and No distention Back: positive Nml inspection Skin: positive Color nml, No rash and Dry Extremities: positive Non-tender and No pedal edema Neurologic/Psychiatric: positive Oriented x3 and Mood/affect nml Lab Results 05/06/24 18:25 05/06/24 18:25 ABX Reporting Has patient been on IV antibiotics over the past 48 hours?: Yes Assessment/Plan Problem List (1) COPD exacerbation: Impression: - Chest x ray shows mild peribroncial thickening with no dense airspace disease or pleural effuesion suspecting obstructive lung disease - Continue IV Azithromycin 250 ms/hr - Continue Duonebs every 4 hours - Completed IV methylprednisolone and start PO Prednisone 40 mg daily - Patient has O2 stat of 84% - I will educate the patient to leave the nasual cannula on (2) Rhinovirus: Impression: - RVP was positive for Rhinovirus - likely the trigger for COPD exacerbation - Continue supportive treatment (3) Heart burn: Impression: - I will prescribe PO Famotidine 20mg BID for patient's reported heartburn - I will assess the efficacy of Famotidine and consider to switch to PPI - Patient is prescribed PO Tums 500mg BID (4) Ileostomy in place: Impression: Patient had a AAA surgery at [facility] in June 2023 resulting in his ileostomy - Concern for constipation - I will start patient on Miralax - Patient manages on own and lives in care. Social work to see if any additional resources can be provided. (5) BPH (benign prostatic hyperplasia): Impression: - Continue with Terazosin Qualifiers: Lower urinary tract symptom presence: symptoms absent Qualified Code(s): N40.0 - Benign prostatic hyperplasia without lower urinary tract symptoms Documented by User: Elaine Garces MD 05/08/24 12:28 Objective Objective Respiratory: positive Wheezes (expiratory, in all lung norris; improved from yesterday ) Lab Results 05/06/24 18:25 05/06/24 18:25 Assessment/Plan Problem List (1) COPD exacerbation: (2) Rhinovirus: (3) Heart burn: (4) Ileostomy in place: (5) BPH (benign prostatic hyperplasia): Qualifiers: Lower urinary tract symptom presence: symptoms absent Qualified Code(s): N40.0 - Benign prostatic hyperplasia without lower urinary tract symptoms
--- NOTE | 2024-05-08 16:31 | PHARMACY PROGRESS NOTE ---
Best Possible Medication History Admit Date and Time: 05/07/24 [id number] Processed by: Pharmacy Medications reviewed in ED?: Yes Medication History completed: Yes Patient Interview: Completed Secondary Source(s): Pharmacy records and Insurance records [facility] Statement: As the person ultimately responsible for medication therapy, providers are able to order a medication from an existing home medication list in [facility] via the "Reconcile Routine" prior to Confirmation of that medication by service support representative. Such practice is discouraged except when the physician, in their clinical judgment, deems that a medical need exists for a medication without regard to previous use.
--- NOTE | 2024-05-08 16:45 | PHARMACY PROGRESS NOTE ---
Best Possible Medication History Admit Date and Time: 05/07/24 [id number] Processed by: Pharmacy Medications reviewed in ED?: Yes Medication History completed: Yes Patient Interview: Completed Secondary Source(s): Pharmacy records and Insurance records [facility] Statement: As the person ultimately responsible for medication therapy, providers are able to order a medication from an existing home medication list in [facility] via the "Reconcile Routine" prior to Confirmation of that medication by child support investigator. Such practice is discouraged except when the physician, in their clinical judgment, deems that a medical need exists for a medication without regard to previous use.
[2024-05-08] MEDS: CHOLECALCIFEROL 25 MCG TABLET PO SCH (18:01)
[2024-05-08] MEDS: MULTIVITAMIN W/MINERALS TABLET PO SCH (18:01)
[2024-05-08] MEDS: predniSONE 20 MG TABLET PO SCH ×2 (18:02→18:34)
[2024-05-08] MEDS: FAMOTIDINE 20 MG TABLET PO SCH (20:08)
[2024-05-08] MEDS: MELATONIN 3 MG TABLET PO ONE (22:14)
[2024-05-09] MEDS: ONDANSETRON 4 MG/2 ML VIAL IVP PRN (04:41)
[2024-05-09 06:03] LABS: HCT - HEMATOCRIT 38.8 % (42.0-52.0); HGB - HEMOGLOBIN 12.2 g/dL (14.0-18.0); MEAN CORPUSCULAR HEMOGLOBIN 31.8 pg (27.0-31.0); MEAN CORPUSCULAR HGB CONC 31.4 g/dL (32.0-36.0); MEAN PLATELET VOLUME 9.6 fL (7.4-11.4); RED BLOOD COUNT 3.84 10^6/uL (4.70-6.10); RED CELL DISTRIBUTION WIDTH 14.6 % (12.0-15.0); WHITE BLOOD COUNT 16.3 x10^3/uL (4.8-10.8)
[2024-05-09 06:35] LABS: CALCIUM 9.1 mg/dL (8.5-10.3); CREATININE 0.9 mg/dL (0.6-1.3); POTASSIUM 5.5 mmol/L (3.5-4.5)
[2024-05-09] MEDS: ENOXAPARIN 40 MG/0.4 ML SYRINGE SUBQ SCH (08:12)
[2024-05-09] MEDS ORDERED: predniSONE 20 MG TABLET PO SCH (09:00)
[2024-05-09] MEDS: CYANOCOBALAMIN 1,000 MCG/ML VIAL IM ONE (10:25)
[2024-05-09] MEDS: BENZOCAINE/MENTHOL LOZENGE MM PRN (11:34)
--- NOTE | 2024-05-09 11:57 | PROVIDER PROGRESS NOTE ---
Documented by User: Chery Hart 05/09/24 11:57 Subjective Prog Note Date Prog Note Date: 05/09/24 Prog Note Time: 10:41 Subjective Pt reports feeling: Improved Subjective: Mr. Lenz is a 68- year old male with a history of recent colonic resection, ileostomy, and COPD not on home oxygen who presented with dyspnea - possible COPD exacerbation due to rhinovirus. Today he reports he is feeling better overall. He reports his shortness of breath is improving. Patient reports persistent cough however is not producing any sputum. He denies fever, chills, night sweats, nausea, vomiting, chest pain or palpitations, chest tightness, diarrhea, constipation, and abdominal discomfort. Current Medications Current Medications Current Medications: Current Medications Generic Name Dose Route Start Last Admin Trade Name Freq PRN Reason Stop Dose Admin Acetaminophen 650 mg 05/08/24 09:04 05/09/24 08:11 Acetaminophen 325 Mg Tablet PO 650 mg Q4HR PRN Administration Pain or Fever > 38C (100.4F) Albuterol/Ipratropium 3 ml 05/07/24 19:00 05/09/24 07:18 Ipratropium/Albuterol 3 Ml Neb INH 3 ml RTQID [facility]T Administration Budesonide 0.5 mg 05/07/24 19:00 05/09/24 07:18 Budesonide 0.5 Mg/2 Ml Neb INH 0.5 mg RTBID R[facility]T Administration Calcium Carbonate/Glycine 500 mg 05/08/24 09:05 05/08/24 17:17 Calcium Carbonate Chew 500 Mg Tablet PO 500 mg BID PRN Administration Abdominal Pain Cholecalciferol 50 mcg 05/08/24 17:00 05/09/24 08:11 Cholecalciferol 25 Mcg Tablet PO 50 mcg DAILY R[facility]ELT Administration Cyanocobalamin 500 mcg 05/10/24 09:00 Cyanocobalamin 500 Mcg Tablet PO DAILY R[facility]T Enoxaparin Sodium 40 mg 05/09/24 09:00 05/09/24 08:12 Enoxaparin 40 Mg/0.4 Ml Syringe SUBQ 40 mg DAILY ROO[facility]ELT Administration Famotidine 20 mg 05/08/24 21:00 05/09/24 08:11 Famotidine 20 Mg Tablet PO 20 mg BID ROO[facility]ELT Administration Azithromycin 500 mg/ Sodium 250 mls @ 250 mls/hr 05/07/24 03:00 05/09/24 03:57 Chloride IV Infused Q24H [facility] Infusion Ondansetron HCl 4 mg 05/09/24 04:13 05/09/24 04:41 Ondansetron 4 Mg/2 Ml Vial IVP 4 mg Q6HR PRN Administration Nausea / Vomiting Polyethylene Glycol 17 gm 05/08/24 08:25 05/09/24 08:11 Polyethylene Glycol 3350 17 Gm Packet PO 17 gm DAILY ROOSEVELT Administration Prednisone 40 mg 05/08/24 18:00 05/09/24 08:11 Prednisone 20 Mg Tablet PO 40 mg DAILYWM ROOSEVELT Administration Multivit/Folic Acid/Iron 1 tab 05/10/24 08:00 Vitamin Tablet PO DAILYWM ROOSEVELT Sodium Chloride 10 ml 05/07/24 09:00 05/09/24 08:12 Sodium Chloride Flush 0.9% 10 Ml Syringe IVP 10 ml 0100,0900,1700 ROOSEVELT Administration Terazosin HCl 2 mg 05/07/24 21:00 05/08/24 20:08 Terazosin 2 Mg Capsule PO 2 mg QPM ROOSEVELT Administration Throat Lozenges 1 lozenge 05/08/24 01:30 Benzocaine/Menthol Lozenge MM Q2HR PRN SOOTHE THROAT FROM COUGHING Objective Vital Signs/Intake & Output Reviewed Vital Signs: Yes Vital Signs: Vital Signs x48h Temp Pulse Pulse Resp BP BP Pulse Ox 05/09/24 10:30 19 94 05/09/24 09:19 88 17 91 L 05/09/24 08:02 19 94 05/09/24 07:45 37.0 C 89 20 118/59 L 95 05/09/24 07:19 88 22 05/09/24 04:45 36.7 C 90 15 102/60 94 O2 Flow Rate 05/09/24 10:30 1 05/09/24 09:19 1 05/09/24 08:02 1.5 05/09/24 07:45 2 05/09/24 07:19 2 05/09/24 04:45 2 Intake & Output: Intake & Output 05/07/24 05/08/24 05/09/24 05/10/24 05:59 05:59 05:59 05:59 Intake Total 730 / 730 1428 / 1428 1741 / 1741 0 / 0 Output Total 875 / 875 1230 / 1230 375 / 375 Balance 730 / 730 553 / 553 511 / 511 -375 / -375 Weight (kg) 48.5 kg Objective General Appearance: positive Mild distress Eyes Bilateral: positive Normal inspection, No lid inflammation, Conjunctivae nml and No scleral icterus Neck: positive Nml inspection, Thyroid nml and No JVD Respiratory: positive Wheezes (wheezing in all lung norris ) Cardiovascular: positive Regular rate & rhythm, No murmur and No gallop Abdomen: positive Non-tender, Nml bowel sounds and No distention Back: positive Nml inspection Skin: positive Color nml, No rash, Warm and Dry Extremities: positive Non-tender and No pedal edema Neurologic/Psychiatric: positive Oriented x3, CN's nml (2-12) and Mood/affect nml Lab Results 05/09/24 05:39 05/09/24 05:39 Other Labs: Lab Results x24hrs 05/09/24 Range/Units 05:39 WBC 16.3 H (4.8-10.8) x10^3/uL RBC 3.84 L (4.70-6.10) 10^6/uL Hgb 12.2 L (14.0-18.0) g/dL Hct 38.8 L (42.0-52.0) % MCV 101.0 H (80.0-94.0) fL MCH 31.8 H (27.0-31.0) pg MCHC 31.4 L (32.0-36.0) g/dL RDW 14.6 (12.0-15.0) % Plt Count 188 (130-450) 10^3/uL MPV 9.6 (7.4-11.4) fL Sodium 139 (135-145) mmol/L Potassium 5.5 H (3.5-4.5) mmol/L Chloride 101 (101-111) mmol/L Carbon Dioxide 35 H (21-32) mmol/L Anion Gap 3.0 L (6-13) BUN 28 H (6-20) mg/dL Creatinine 0.9 (0.6-1.3) mg/dL Estimated GFR (MDRD) 83 L (>89) Glucose 98 (74-104) mg/dL Calcium 9.1 (8.5-10.3) mg/dL Vitamin B12 126 L (180-914) pg/mL Folate 6.8 (5.90 - >24.8) ng/mL Assessment/Plan Problem List (1) COPD exacerbation: Impression: - Chest x ray shows mild peribroncial thickening with no dense airspace disease or pleural effusion suspecting obstructive lung disease - Continue IV Azithromycin 250 ms/hr for 5 days - Continue Duonebs every 4 hours - Continue PO prednisone - Patient has O2 sat of 94% with oxygen. I am not able to wean patient off oxygen without compromising O2 saturation. I will do a destat study - I will order B12 and Folate labs tomorrow morning - Patient will likely need 1-2 more days of supportive care prior to discharge. Additionally, patient's living situation is complicated - he lives in his car and we are unable to send him with home oxygen. mining support worker is working on creating a disposition plan (2) Rhinovirus: Impression: - RVP was positive for Rhinovirus - likely the trigger for COPD exacerbation - Continue supportive therapy (3) Heart burn: Impression: - Patient reports his heart burn is improved today - Continue with PO Famotidine 20mg BID - Continue with PO Tums 500mg BID (4) Hyperkalemia: Impression: - Today Potassium is 5.5 - I will order a lab tomorrow morning to recheck the value and then assess (5) Ileostomy in place: Impression: Miralax was started yesterday due to concern for constipation - today the output was thin and similar to the baseline - K was elevated at 5.5. I will recheck lab to reassess - Patient manages on own (6) BPH (benign prostatic hyperplasia): Impression: - Continue with Terazosin Qualifiers: Lower urinary tract symptom presence: symptoms absent Qualified Code(s): N40.0 - Benign prostatic hyperplasia without lower urinary tract symptoms Documented by User: ALLI Turner 05/09/24 14:19 Objective Lab Results 05/09/24 05:39 05/09/24 05:39 Assessment/Plan Problem List (1) COPD exacerbation: (2) Rhinovirus: (3) Heart burn: (4) Hyperkalemia: (5) Ileostomy in place: (6) BPH (benign prostatic hyperplasia): Qualifiers: Lower urinary tract symptom presence: symptoms absent Qualified Code(s): N40.0 - Benign prostatic hyperplasia without lower urinary tract symptoms
[2024-05-10 08:11] VITALS: O2SAT 95
[2024-05-10] MEDS: CYANOCOBALAMIN 500 MCG TABLET PO SCH (08:16)
[2024-05-10] MEDS: PRENATAL VITAMIN TABLET PO SCH (08:16)
[2024-05-10 09:44] LABS: BASOPHILS % (AUTO) 0.1 %; EOSINOPHILS % (AUTO) 0.3 %; LYMPHOCYTES # (AUTO) 1.6 10^3/uL (1.5-3.5); LYMPHOCYTES % (AUTO) 15.5 %; MEAN CORPUSCULAR HEMOGLOBIN 31.8 pg (27.0-31.0); MEAN CORPUSCULAR HGB CONC 31.6 g/dL (32.0-36.0); MEAN CORPUSCULAR VOLUME 100.8 fL (80.0-94.0); MEAN PLATELET VOLUME 9.5 fL (7.4-11.4); MONOCYTES # (AUTO) 1.1 10^3/uL (0.0-1.0); MONOCYTES % (AUTO) 10.9 %; NEUTROPHILS # (AUTO) 7.2 10^3/uL (1.5-6.6); NEUTROPHILS % (AUTO) 72.4 %; PLT - PLATELET COUNT 184 10^3/uL (130-450); RED BLOOD COUNT 3.77 10^6/uL (4.70-6.10); RED CELL DISTRIBUTION WIDTH 14.7 % (12.0-15.0)
[2024-05-10 09:58] LABS: CALCIUM 8.9 mg/dL (8.5-10.3); CREATININE 0.8 mg/dL (0.6-1.3); POTASSIUM 4.5 mmol/L (3.5-4.5)
--- NOTE | 2024-05-10 10:45 | Discharge Summary ---
"Discharge Summary Admit Date: 05/07/24 Discharge Date: 05/10/24 Discharging Provider: Veronica Vázquez PA-C Primary Care Provider: Marjorie Lee Code Status: Attempt Resuscitation DIAGNOSES Admission Diagnoses: Acute on chronic respiratory failure COPD exacerbation Acute bronchitis Rhinovirus infection Discharge Diagnoses with Status of Each Condition: 1) COPD exacerbation: Impression: - Chest x ray shows mild peribroncial thickening with no dense airspace disease or pleural effusion suspicious for obstructive lung disease - He will finish a 5 day course of azithromycin - he was prescribed inhalers for discharge: asmanex, spiriva, combivent, albuterol. - Continue PO prednisone. he was prescribed a taper of presnisone. - Patient refused oxygen desaturation study. At bedside RN noted that patient desaturated to the mid 80s while eating on room air. He has oxygen tanks within his possession. He states he knows how to get more oxygen. He states he will use oxygen when he is short of breath. - patient's living situation is complicated - he lives in his car. (2) Rhinovirus: Impression: - RVP was positive for Rhinovirus - likely the trigger for COPD exacerbation - symptoms are improving (3) Heart burn: Impression: - Denies having problems with heartburn/GERD symptoms as an outpatient. potentially related to prednisone use (4) Hyperkalemia: Impression: - resolved. 4.5 prior to dd. (5) Ileostomy in place: Impression: not high output. has maintained normal renal function - Patient manages on own (6) BPH (benign prostatic hyperplasia): Impression: - Continue with Terazosin Qualifiers: Lower urinary tract symptom presence: symptoms absent Qualified Code(s): N40.0 - Benign prostatic hyperplasia without lower urinary tract symptoms HPI History of Present Illness: 68 y old male with PMH COPD prsented to ER due to SOB for 2 days. c/o cough with sputum. Denies hemoptysis, fever, chest pain On presentation, wt was tachypnic and hypoxic In ER, pt was given IV solumedrol, Nebs, CXR is neg for inflitrate Pt is admitted due to acute onchronic hypoxic resp failure due to COPD exacerbation CONSULTS | PROCEDURES Consultations: none Procedures: CXR at the time of admit: Mild peribronchial thickening, possibly bronchitis. Suspect obstructive lung disease. No dense airspace consolidation or pleural effusions. Limited single view study. HOSPITAL COURSE Hospital Course: Presented to the hospital ED with worsening shortness of breath for 2 days and cough with sputum. Tachypneic and hypoxic on presentation in the ED was given IV Solu-Medrol and nebulizer treatments. Patient lives in his car by choice. He has been offered other living environments. 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 He is managing his ileostomy well without issues. He has had his ileostomy for about 10 months. Throughout his course he was maintained on oxygen 2 to 4 L. He does have oxygen tank in his car. Although he uses the oxygen as needed. During the course of his hospital treatment he was not able to wean to room air. However on hospital day 4 he insisted upon discharge to home. He continued to have wheezing on exam but was discharged to home in fair condition. He has oxygen access he was prescribed all inhalers as well as a prednisone taper. It was recommended that he follow-up with his PCP who is at the [facility] clinic. ALLERGIES Allergies Allergy/AdvReac Type Severity Reaction Status Date / Time No Known Drug Allergies Allergy Verified 05/06/24 18:11 MEDICATIONS Ambulatory Orders Medication Instructions Recorded Confirmed cetirizine 1 mg/mL oral solution 1 mg PO DAILY 11/22/13 05/06/24 ipratropium 20 mcg-albuterol 100 1 puff IH QID 09/15/16 05/06/24 mcg/actuation mist for inhalation (Combivent Respimat) albuterol sulfate 90 mcg/actuation 1 - 2 puff inhalation Q4HR PRN 12/23/17 05/06/24 aerosol inhaler (Ventolin HFA) Shortness Of Air/Wheezing ##1 terazosin 1 mg capsule 2 mg PO DAILY 01/02/22 05/06/24 valproic acid 125 mg 125 mg PO DAILY 05/08/24 05/08/24 capsule,delayed release albuterol sulfate 90 mcg/actuation 1 puff inhalation QID PRN 05/10/24 aerosol inhaler (Proventil HFA) shortness of breath or wheezing #6.7 grams azithromycin 250 mg tablet 500 mg (2 x 250 mg) PO DAILY #2 05/10/24 tabs cyanocobalamin (vitamin B-12) 500 500 mcg PO DAILY #30 tabs 05/10/24 mcg tablet ergocalciferol (vitamin D2) 1,250 1,250 mcg PO QWEEK #5 caps 05/10/24 mcg (50,000 unit) capsule ipratropium 20 mcg-albuterol 100 1 puff inhalation QID #4 grams 05/10/24 mcg/actuation mist for inhalation (Combivent Respimat) mometasone 200 mcg/actuation HFA 2 puff inhalation BID #13 grams 05/10/24 aerosol inhaler (Asmanex HFA) mometasone 200 mcg/actuation HFA 2 puff inhalation BID #13 grams 05/10/24 aerosol inhaler (Asmanex HFA) prednisone 20 mg tablet See Rx Instructions .Route 05/10/24 .COMPLEX #19 tabs vit,calcium 27-ferrous 1 tab PO DAILYWM #30 tabs 05/10/24 fum 60 mg iron-folic acid 1 mg tablet (Trinatal Rx 1) tiotropium bromide 1.25 2 puff inhalation DAILY #4 grams 05/10/24 mcg/actuation mist for inhalation (Spiriva Respimat) tiotropium bromide 2.5 2 puff inhalation DAILY #4 grams 05/10/24 mcg/actuation mist for inhalation (Spiriva Respimat) PHYSICAL EXAM AT DISCHARGE General Appearance: positive No acute distress and Alert Eyes Bilateral: positive Normal inspection ENT: positive ENT inspection nml Neck: positive Nml inspection Respiratory: positive No respiratory distress and Wheezes (diffuse) Cardiovascular: positive Regular rate & rhythm Abdomen: positive No distention Back: positive Nml inspection Skin: positive Color nml Extremities: positive Non-tender and No pedal edema Neurologic/Psychiatric: positive Oriented x3 LABS 05/10/24 09:32 05/10/24 09:32 SEPSIS Current Stage of Sepsis: Ruled out FOLLOW UP Follow Up: Marjorie Lee, PCP, [facility] in [place] TIME SPENT Time Spent in Discharge (Minutes): 40 Discharge Plan Discharge Patient Disposition: [facility], Self Care Condition: Fair Prescriptions: New cyanocobalamin (vitamin B-12) 500 mcg Tablet 500 mcg PO DAILY Qty: 30 0RF prednisone 20 mg Tablet See Rx Instructions .ROUTE .COMPLEX Qty: 19 0RF Rx Instructions: 40mg a day for 2 days, 20mg a day for 3 days, 10mg a day for 3 days, 5 mg a day for 3 days. 10mg tabs. # 19 tablets Trinatal Rx 1 60 mg iron-1 mg Tablet 1 tab PO DAILYWM Qty: 30 0RF Spiriva Respimat 2.5 mcg/actuation mist 2 puff inhalation DAILY Qty: 4 2RF Asmanex HFA 200 mcg/actuation HFA aerosol inhaler 2 puff inhalation BID Qty: 13 2RF azithromycin 250 mg Tablet 500 mg PO DAILY Qty: 2 0RF albuterol sulfate [Proventil HFA] 90 mcg/actuation HFA aerosol inhaler 1 puff inhalation QID PRN (Reason: shortness of breath or wheezing) Qty: 6.7 2RF Asmanex HFA 200 mcg/actuation HFA aerosol inhaler 2 puff inhalation BID Qty: 13 2RF Rx Instructions: rinse mouth after use. Spiriva Respimat 1.25 mcg/actuation mist 2 puff inhalation DAILY Qty: 4 2RF Combivent Respimat 20-100 mcg/actuation mist 1 puff inhalation QID Qty: 4 2RF Rx Instructions: space evenly during waking hours ergocalciferol (vitamin D2) 1,250 mcg (50,000 unit) capsule 1,250 mcg PO QWEEK Qty: 5 2RF Continued cetirizine 1 MG/1 ML solution 1 mg PO DAILY Combivent Respimat 4 GM mist 1 puff IH QID albuterol sulfate [Ventolin HFA] 200 PUFFS/18 GM HFA aerosol inhaler 1 - 2 puff inhalation Q4HR PRN (Reason: Shortness Of Air/Wheezing) Qty: 1 0RF Patient Comments: Last taken a month ago. terazosin 1 MG capsule 2 mg PO DAILY valproic acid 125 mg capsule,delayed release(DR/EC) 125 mg PO DAILY Discontinued albuterol sulfate 2.5 MG/3 ML solution for nebulization 2.5 mg inhalation Q4H PRN (Reason: Wheezing) Qty: 30 0RF Rx Instructions: 1 AMPULE Activity Restrictions: No Restrictions Diet: Regular Health Concerns: You came into the hospital with worsening shortness of breath. This was a COPD exacerbation that was probably caused by a virus. Since you have been here you have been on multiple medications to help your breathing to include steroids and antibiotics. You were still requiring oxygen to complete basic activities of daily living. You may need to continue to be on oxygen at home. It is important that you follow-up with your primary care doctor at the [facility] in [place]. You need to do this within the week. Return here if you have increasing shortness of breath. We would recommend that you stop smoking. Your use of tobacco is making your lung disease worse over time. You have lost a significant amount of weight over time. Some of this is because you have to work so hard to breathe. Please focus on getting a balanced diet. Care Plan Goals: I have prescribed multiple inhalers for you. These include Combivent, albuterol, Spiriva, and Asmanex. Additionally I have sent in a steroid taper for you. The name of this medication is prednisone. I want you to take 40 mg a day for 2 days I want you to take 20 mg a day for 3 days, 10 mg a day for 3 days and 5 mg a day for 3 days. Print Language: Guamanian Patient Instructions: Chronic Lung Disease [employer], Asthma Meds, Chronic Lung Disease Nutrition Follow-up Care: MARJORIE LEE MD [Physician No Access] -"
[2024-05-10] MEDS ORDERED: CHOLECALCIFEROL 5,000 UNIT CAPSULE PO SCH (17:00)
[2024-05-11] MEDS ORDERED: AZITHROMYCIN 250 MG TABLET PO SCH (03:00)
== END 2024-05-10 11:03 | disposition home or self-care (01) ==
LOC: ED 17:55 → SUATTDRO 05-07 02:18 → MS2 05-07 02:18
PROVIDERS: ADMIT Internal Medicine; ATTEND Internal Medicine